=== PATIENT | male | born 1990 | race American Indian/Alaskan Native ===

== ENCOUNTER 2017-08-12 16:15 | Emergency (ER) | payer OTHER ==
[2017-08-12] MEDS ORDERED: CATAPRES PO ONE (17:30)
--- NOTE | 2017-08-12 18:49 | XRay Report ---
FINAL REPORT EXAM: XR FOOT 3+V LT HISTORY: injury to great toe TECHNIQUE: Four views left foot Comparison: None FINDINGS: Normal bony mineralization. No fracture or dislocation identified. Preserved longitudinal arch. No significant degenerative disease. Dorsal soft tissue swelling over the forefoot. The medial tuft is incompletely evaluated of the great toe due to inadequate bony technique. IMPRESSION: Suboptimal technique. Medial tuft great toe incompletely assessed. No definite fracture or dislocation. Dorsal soft tissue swelling.
--- NOTE | 2017-08-12 20:21 | Emergency Department Report ---
ED Lower Extremity HPI - General Chief Complaint: Extremity Injury, Lower Stated Complaint: SWOLLEN FOOT Time Seen by Provider: 08/12/17 20:18 Source: patient Mode of arrival: Ambulatory Limitations: No Limitations - History of Present Illness Initial Comments: This is a 27 y.o male, presenting with left great toe pain. Patient states he think he stumped toe on coffee table or Sunday night. He went to work and it was fine until today the pain is 10/10 on pain scale with swelling. It is very uncomfortable putting foot into shoe. Complaint: foot injury -: Sudden Injury: Foot: Left (stumped left great toe) Type of Injury: blunt Place: home Severity scale (0 -10): 10 Improves With: NSAID, immobilization Worsens With: weight bearing, movement, other (touch) Context: direct blow Associated Symptoms: swelling, able to partially bear weight, ambulatory. denies: numbness, tingling, unable to bear weight Treatments Prior to Arrival: NSAIDS - Related Data Previous Rx's Medication Instructions Recorded Last Taken Type Colchicine [Colcrys] 0.6 mg PO DAILY 30 Days #30 tablet 08/12/17 Unknown Rx Ibuprofen 800 mg PO Q6HR 7 Days #28 tablet 08/12/17 Unknown Rx Prednisone [predniSONE 10 mg 10 mg PO .TAPER #1 tab.ds.pk 08/12/17 Unknown Rx (6-Day Pack, 21 Tabs)] Allergies Allergy/AdvReac Type Severity Reaction Status Date / Time No Known Allergies Allergy Verified 08/12/17 20:19 ED Review of Systems ROS: Stated complaint: SWOLLEN FOOT Other details as noted in HPI Constitutional: no symptoms reported, see HPI. denies: chills, diaphoresis, fever, malaise, weakness Respiratory: no symptoms reported, see HPI. denies: cough, orthopnea, shortness of breath, SOB with exertion, SOB at rest, stridor, wheezing Cardiovascular: as per HPI. denies: chest pain, palpitations, dyspnea on exertion, orthopnea, edema, syncope, paroxysmal nocturnal dyspnea Musculoskeletal: as per HPI, joint swelling. denies: back pain, arthralgia, myalgia Skin: as per HPI. denies: rash, lesions, change in hair/nails, pruritus Neurological: as per HPI. denies: headache, weakness, numbness, paresthesias, confusion, abnormal gait, vertigo Psychiatric: as per HPI. denies: anxiety, depression, auditory hallucinations, visual hallucinations, homicidal thoughts, suicidal thoughts ED Past Medical Hx - Past Medical History Hx Hypertension: Yes Hx HIV: Yes - Surgical History Past Surgical History?: No - Social History Smoking Status: Never Smoker Substance Use Type: None - Medications Home Medications: Home Medications Medication Instructions Recorded Confirmed Last Taken Type Colchicine [Colcrys] 0.6 mg PO DAILY 30 Days #30 tablet 08/12/17 Unknown Rx Ibuprofen 800 mg PO Q6HR 7 Days #28 tablet 08/12/17 Unknown Rx Prednisone [predniSONE 10 mg 10 mg PO .TAPER #1 tab.ds.pk 08/12/17 Unknown Rx (6-Day Pack, 21 Tabs)] ED Physical Exam - General Limitations: No Limitations General appearance: alert, in no apparent distress - Respiratory Respiratory exam: Present: normal lung sounds bilaterally. Absent: respiratory distress, wheezes, rales, rhonchi, stridor, chest wall tenderness, accessory muscle use, decreased breath sounds, prolonged expiratory - Cardiovascular Cardiovascular Exam: Present: regular rate, normal rhythm, normal heart sounds. Absent: bradycardia, tachycardia, irregular rhythm, systolic murmur, diastolic murmur, rubs, gallop, clicks - GI/Abdominal GI/Abdominal exam: Present: soft, normal bowel sounds. Absent: distended, tenderness, guarding, rebound, rigid, diminished bowel sounds, hyperactive bowel sounds, hypoactive bowel sounds, organomegaly, mass, bruit, pulsatile mass , hernia - Extremities Exam Extremities exam: Present: normal inspection, full ROM, tenderness, normal capillary refill, joint swelling (left great toe erythema, mild swelling, painful to touch). Absent: pedal edema, calf tenderness - Neurological Exam Neurological exam: Present: alert, oriented X3, CN II-XII intact, normal gait. Absent: altered, abnormal gait, motor sensory deficit, reflexes normal - Psychiatric Psychiatric exam: Present: normal affect, normal mood. Absent: depressed, agitated, anxious, flat affect, manic, homicidal ideation, suicidal ideation - Skin Skin exam: Present: warm, dry, intact, normal color. Absent: rash, cyanosis, diaphoretic, urticaria, vesicles, petechiae, pallor, abrasion, ecchymosis ED Course Vital Signs 08/12/17 08/12/17 08/12/17 17:26 17:45 23:28 Temperature 98.9 F Pulse Rate 102 H 102 H 100 H Respiratory 18 22 Rate Blood Pressure 178/120 178/120 Blood Pressure 192/138 [Left] O2 Sat by Pulse 100 100 Oximetry ED Lower Extremity MDM - Lab Data Result diagrams: 08/12/17 21:50 08/12/17 21:50 - Radiology Data Radiology results: image reviewed interpreted by me: radiology FINDINGS: Normal bony mineralization. No fracture or dislocation identified. Preserved longitudinal arch. No significant degenerative disease. Dorsal soft tissue swelling over the forefoot. The medial tuft is incompletely evaluated of the great toe due to inadequate bony technique. IMPRESSION: Suboptimal technique. Medial tuft great toe incompletely assessed. No definite fracture or dislocation. Dorsal soft tissue swelling. - Medical Decision Making 27 y.o. male with left great toe pain, possibly stumped on coffee table 2-3 days ago. Xray, negative fracture, Uric acid 8.9. Started on prednisone, colchicine, and ibuprofen. F/U with PCP. Referred to [facility]. Pt BP remained elevated, refused IV for hydralizine, signed AMA. Critical care attestation.: If time is entered above; I have spent that time in minutes in the direct care of this critically ill patient, excluding procedure time. ED Disposition Clinical Impression: Gout attack Qualifiers: Gout site: toe Gout etiology: idiopathic Laterality: left Qualified Code(s): M10.072 - Idiopathic gout, left ankle and foot Disposition: - TO HOME OR SELFCARE Is pt being admited?: No Does the pt Need Aspirin: No Condition: Stable Instructions: Low Purine Diet (ED), Acute Gouty Arthritis (ED), Self-Care Measures with a Chronic Disease (ED) Additional Instructions: Follow-up with PCP. Prescriptions: Colchicine [Colcrys] 0.6 mg PO DAILY 30 Days #30 tablet Ibuprofen 800 mg PO Q6HR 7 Days #28 tablet Prednisone [predniSONE 10 mg (6-Day Pack, 21 Tabs)] 10 mg PO .TAPER #1 tab.ds.pk Referrals: PRIMARY CARE, [Primary Care Provider] - 3-5 Days Forms: AMA Form, Work/School Release Form Time of Disposition: 23:14 Print Language: POLISH
[2017-08-12 22:17] LABS: Basophils % (Auto) 0.6 % (0.0-1.8); Eosinophils % (Auto) 0.6 % (0.0-4.3); Hemoglobin 13.5 gm/dl (11.8-15.2); Mean Corpuscular HGB Conc 32 % (32-34); Mean Corpuscular Volume 80 fl (84-94); Platelet Count 247 K/mm3 (140-440); Red Blood Count 5.28 M/mm3 (3.65-5.03); Red Cell Distribution Width 14.1 % (13.2-15.2)
[2017-08-12 22:27] LABS: Mean Corpuscular Hemoglobin 26 pg (28-32)
[2017-08-12 22:57] LABS: Alanine Aminotransferase 20 units/L (7-56); Albumin 4.2 g/dL (3.9-5); Alkaline Phosphatase 65 units/L (35-129); Anion Gap 17 mmol/L; BUN/Creatinine Ratio 12; Blood Urea Nitrogen 13 mg/dL (9-20); Calcium 9.1 mg/dL (8.4-10.2); Carbon Dioxide 29 mmol/L (22-30); Chloride 97.4 mmol/L (98-107); Glucose 94 mg/dL (75-100); Potassium 4.3 mmol/L (3.6-5.0); Sodium 139 mmol/L (137-145); Total Protein 8.3 g/dL (6.3-8.2); Uric Acid 8.9 mg/dL (3.5-7.6)
[2017-08-12 23:29] VITALS: BP 192/138
== END 2017-08-12 23:28 | disposition home or self-care (01) ==
LOC: ED 16:15
DX: M10.072 Idiopathic gout, left ankle and foot (principal); Z21 Asymptomatic human immunodeficiency virus [HIV] infection status; I10 Essential (primary) hypertension
CPT/HCPCS: 36415; 80053; 84550; 85025; 99284

== ENCOUNTER 2018-10-31 17:22 | Inpatient (IN) | payer SELFPAY ==
[2018-10-31] MEDS ORDERED: NACL 0.9% 1000 ML 1,000 ML IV ONE (17:50)
[2018-10-31] MEDS ORDERED: ZOFRAN IV ONE (17:51)
--- NOTE | 2018-10-31 17:51 | Emergency Department Report ---
ED N/V/D HPI - General Chief complaint: Abdominal Pain Stated complaint: NAUSEA/VOMIT Time Seen by Provider: 10/31/18 17:48 Source: patient Mode of arrival: Wheelchair Limitations: No Limitations - History of Present Illness Initial comments: Patient is a 28-year-old male that presents emergency room with complaints of nausea and vomiting that started the night prior. Patient states his symptoms are worsening. Patient states he has not held anything down for the last 24 hours. Patient denies fever and chills. Patient denies nausea vomiting patient denies blood in his vomitus. Patient denies diarrhea. Patient denies abdominal pain. Patient denies chest pain/shortness of breath. MD complaint: nausea, vomiting -: Sudden Description of Vomiting: watery Associated Abdominal Pain: No Severity: severe Consistency: constant Improves with: rest Worsens with: eating Associated Symptoms: nausea/vomiting. denies: myalgias, chest pain, cough, diaphoresis, fever/chills, headaches, loss of appetite, malaise, rash, dysuria, shortness of breath, syncope, weakness - Related Data Previous Rx's Medication Instructions Recorded Last Taken Type Ondansetron [Zofran Odt] 4 mg PO Q6HR PRN #15 tab.rapdis 10/31/18 Unknown Rx Allergies Allergy/AdvReac Type Severity Reaction Status Date / Time No Known Allergies Allergy Verified 10/31/18 17:29 ED Review of Systems ROS: Stated complaint: NAUSEA/VOMIT Other details as noted in HPI Constitutional: denies: chills, fever Eyes: denies: eye pain, eye discharge, vision change ENT: denies: ear pain, throat pain Respiratory: denies: cough, shortness of breath, wheezing Cardiovascular: denies: chest pain, palpitations Endocrine: no symptoms reported Gastrointestinal: nausea, vomiting. denies: abdominal pain, diarrhea Genitourinary: denies: urgency, dysuria Musculoskeletal: denies: back pain, joint swelling, arthralgia Skin: denies: rash, lesions Neurological: denies: headache, weakness, paresthesias Psychiatric: denies: anxiety, depression Hematological/Lymphatic: denies: easy bleeding, easy bruising ED Past Medical Hx - Past Medical History Previous Medical History?: Yes Hx Hypertension: Yes Hx HIV: Yes - Surgical History Past Surgical History?: Yes - Family History Family history: no significant - Social History Smoking Status: Never Smoker Substance Use Type: None - Medications Home Medications: Home Medications Medication Instructions Recorded Confirmed Last Taken Type Ondansetron [Zofran Odt] 4 mg PO Q6HR PRN #15 tab.rapdis 10/31/18 Unknown Rx ED Physical Exam - General Limitations: No Limitations General appearance: alert, in no apparent distress - Head Head exam: Present: atraumatic, normocephalic - Eye Eye exam: Present: normal appearance - ENT ENT exam: Present: mucous membranes dry - Neck Neck exam: Present: normal inspection - Respiratory Respiratory exam: Present: normal lung sounds bilaterally. Absent: respiratory distress - Cardiovascular Cardiovascular Exam: Present: regular rate, normal rhythm. Absent: systolic murmur, diastolic murmur, rubs, gallop - GI/Abdominal GI/Abdominal exam: Present: soft, normal bowel sounds. Absent: distended, tenderness, guarding, rebound, rigid - Rectal Rectal exam: Present: deferred - Extremities Exam Extremities exam: Present: normal inspection - Back Exam Back exam: Present: normal inspection - Neurological Exam Neurological exam: Present: alert, oriented X3 - Psychiatric Psychiatric exam: Present: normal affect, normal mood - Skin Skin exam: Present: warm, dry, intact, normal color. Absent: rash ED Course Vital Signs 10/31/18 10/31/18 10/31/18 17:29 18:00 18:10 Temperature 98.5 F Pulse Rate 93 H 82 Respiratory 18 20 10 L Rate Blood Pressure 212/143 Blood Pressure [Left] O2 Sat by Pulse 96 97 Oximetry 10/31/18 10/31/18 10/31/18 18:15 19:15 19:30 Temperature Pulse Rate 83 82 91 H Respiratory 11 L 12 21 Rate Blood Pressure 148/92 145/90 154/111 Blood Pressure [Left] O2 Sat by Pulse Oximetry 10/31/18 10/31/18 10/31/18 19:45 20:00 22:49 Temperature 97.9 F Pulse Rate 81 86 86 Respiratory 18 10 L 18 Rate Blood Pressure 173/107 186/115 172/106 Blood Pressure 153/108 [Left] O2 Sat by Pulse 98 Oximetry 10/31/18 10/31/18 10/31/18 22:50 23:01 23:21 Temperature Pulse Rate Respiratory Rate Blood Pressure 176/106 180/96 152/92 Blood Pressure [Left] O2 Sat by Pulse Oximetry - Reevaluation(s) Reevaluation #1: Coastal results of patient. Patient blood pressures better. Patient states he is symptoms have resolved. Patient states feeling better. The patient has finished his fluids he will be discharged home. Patient is stable for discharge. Patient given discharge instructions. 10/31/18 19:11 Patient fluids are in. Patient states he is feeling better. Patient will be discharged home 10/31/18 20:06 Patient states he is now feeling dizzy and is feeling bad and wants to stay in the hospital. Patient states unable to ambulate. Patient states he is not feel safe going home. 10/31/18 20:30 - Consultations Consultation #1: Hospital is consulted for admission. Hospitalist to admit patient and assume care of patient. 10/31/18 21:35 ED Medical Decision Making - Lab Data Result diagrams: 10/31/18 17:54 10/31/18 17:54 - Medical Decision Making Patient is a 28-year-old male that is emergency room with nausea vomiting. Patient denied abdominal pain. Patient's exam was negative. Patient's clinical findings impression are consistent with a gastrointestinal virus gastroenteritis. After patient was given discharged structures and is being prepared for discharge,, patient state he is unable to ambulate and became dizzy immediately upon getting out of bed. Patient was admitted to the hospitalist service for further evaluation treatment. - Differential Diagnosis n/v. gastroenteritis. Gastritis. Critical care attestation.: If time is entered above; I have spent that time in minutes in the direct care of this critically ill patient, excluding procedure time. ED Disposition Clinical Impression: Gastroenteritis, Dizziness Nausea & vomiting Qualifiers: Vomiting type: unspecified Vomiting Intractability: non-intractable Qualified Code(s): R11.2 - Nausea with vomiting, unspecified Disposition: DC-09 OP ADMIT IP TO THIS HOSP Is pt being admited?: Yes Does the pt Need Aspirin: No Condition: Serious Time of Disposition: 21:35
[2018-10-31 18:24] LABS: Basophils % (Auto) 0.3 % (0.0-1.8); Eosinophils % (Auto) 0.2 % (0.0-4.3); Hematocrit 44.5 % (35.5-45.6); Hemoglobin 14.6 gm/dl (11.8-15.2); Lymphocytes # (Auto) 1.6 K/mm3 (1.2-5.4); Lymphocytes % (Auto) 21.4 % (13.4-35.0); Mean Corpuscular HGB Conc 33 % (32-34); Mean Corpuscular Volume 80 fl (84-94); Monocytes # (Auto) 0.4 K/mm3 (0.0-0.8); Platelet Count 259 K/mm3 (140-440); Red Blood Count 5.55 M/mm3 (3.65-5.03)
[2018-10-31 18:39] LABS: Alanine Aminotransferase 17 units/L (7-56); Albumin 4.3 g/dL (3.9-5); BUN/Creatinine Ratio 10; Blood Urea Nitrogen 11 mg/dL (9-20); Calcium 9.4 mg/dL (8.4-10.2); Hemolysis Index 7
[2018-10-31] MEDS ORDERED: TYLENOL PO PRN (22:05)
[2018-10-31] MEDS ORDERED: MORPHINE IV PRN (22:05)
[2018-10-31] MEDS ORDERED: SODIUM CHLORIDE FLUSH SYRINGE 10 ML IV PRN (22:05)
--- NOTE | 2018-10-31 22:26 | History and Physical Report ---
History of Present Illness Date of examination: 10/31/18 History of present illness: 28 year old man with a history of HIV, unknown CD4 count, hypertension comes emergency room with complaints of nausea vomiting and diarrhea that started last night after eating [employer]. The areas improve, and he feels dizzy and f eels if he is going to pass out, decreased oral intake Review of systems Constitutional: no weight loss, chills, fever Ears, eyes, nose, mouth and throat: no nasal congestion, no nasal discharge, no sinus pressure, no vision change, no red eye. Neck: No neck pain or rigidity. Cardiovascular: no palpitations, chest pain Respiratory: no cough, shortness of breath Gastrointestinal: no hematochezia, abdominal pain Genitourinary : no frequency , no hematuria Musculoskeletal: no joint swelling or muscle ache Integumentary: no rash, no pruritis Neurological: no parathesias, no focal weakness Endocrine: no cold or heat intolerance, no polyuria or polydipsia Hematologic/Lymphatic: no easy bruising, no easy bleeding, no gland swelling Allergic/Immunologic: no urticaria, no angioedema. PAST MEDICAL HISTORY: HIV, unknown CD4 count, hypertension PAST SURGICAL HISTORY: None SOCIAL HISTORY: Denies alcohol, drugs, tobacco FAMILY HISTORY: Hypertension Medications and Allergies Allergies Allergy/AdvReac Type Severity Reaction Status Date / Time No Known Allergies Allergy Verified 10/31/18 17:29 Home Medications Medication Instructions Recorded Confirmed Last Taken Type Colchicine [Colcrys] 0.6 mg PO DAILY 30 Days #30 tablet 08/12/17 Unknown Rx Ibuprofen 800 mg PO Q6HR 7 Days #28 tablet 08/12/17 Unknown Rx Prednisone [predniSONE 10 mg 10 mg PO .TAPER #1 tab.ds.pk 08/12/17 Unknown Rx (6-Day Pack, 21 Tabs)] Ondansetron [Zofran Odt] 4 mg PO Q6HR PRN #15 tab.rapdis 10/31/18 Unknown Rx Active Meds: Active Medications Acetaminophen (Tylenol) 650 mg PO Q4H PRN PRN Reason: Pain MILD(1-3)/Fever >100.5/MARCIAL Enoxaparin Sodium (Lovenox) 30 mg SUB-Q QDAY RYANN Sodium Chloride (Nacl 0.45% 1000 Ml) 1,000 mls @ 125 mls/hr IV DIRECT RYANN Exam - Physical Exam Narrative exam: General Apperance: The patient lying in bed, breathing comfortable HEENT: Normocephalic, atraumatic. Pupils equally round and reactive to light, EOMI, no sclericterus or JVD or thyromegaly or nodule. , no carotid bruit, mucous membranes moist, no exudate or erythema Heart: S1-S2, regular is rhythm Lungs: Clear to auscultation bilaterally, breathing comfortable Abdomen: Positive bowel sounds, soft, nontender, nondistended, no organomegaly Extremities: No edema cyanosis clubbing Skin: no rash, nodule, warm and dry Neuro: cranial nerves 2-12 intact, speech is fluent, motor/sensory intact - Constitutional Vitals: Temp Pulse Resp BP Pulse Ox 98.5 F 91 H 21 154/111 97 10/31/18 17:29 10/31/18 19:30 10/31/18 19:30 10/31/18 19:30 10/31/18 18:00 Results - Labs CBC & Chem 7: 10/31/18 17:54 10/31/18 17:54 Labs: Abnormal lab results 10/31/18 10/31/18 Range/Units 17:54 17:54 RBC 5.55 H (3.65-5.03) M/mm3 MCV 80 L (84-94) fl MCH 26 L (28-32) pg Seg Neutrophils % 72.1 H (40.0-70.0) % Glucose 130 H (75-100) mg/dL Total Protein 8.5 H (6.3-8.2) g/dL Assessment and Plan Assessment Gastroenteritis, viral Dizziness second to the above Hypertension HIV Plan Admit to medicine Start IV fluids, antiemetics, send stool studies IV hydralazine for blood pressure control DVT prophylaxis
[2018-10-31] MEDS: APRESOLINE IV PRN (22:50)
[2018-11-01] MEDS: REGLAN IV PRN ×2 (00:50→16:38)
[2018-11-01] MEDS: APRESOLINE IV PRN ×3 (06:02→22:56)
[2018-11-01 06:12] LABS: Basophils % (Auto) 0.3 % (0.0-1.8); Eosinophils % (Auto) 0.3 % (0.0-4.3); Hematocrit 42.8 % (35.5-45.6); Hemoglobin 14.1 gm/dl (11.8-15.2); Lymphocytes # (Auto) 2.7 K/mm3 (1.2-5.4); Lymphocytes % (Auto) 28.7 % (13.4-35.0); Mean Corpuscular HGB Conc 33 % (32-34); Mean Corpuscular Volume 80 fl (84-94); Monocytes # (Auto) 0.8 K/mm3 (0.0-0.8); Monocytes % (Auto) 8.1 % (0.0-7.3); Platelet Count 285 K/mm3 (140-440); Red Blood Count 5.36 M/mm3 (3.65-5.03); Red Cell Distribution Width 14.4 % (13.2-15.2)
[2018-11-01 06:36] LABS: BUN/Creatinine Ratio 9; Blood Urea Nitrogen 10 mg/dL (9-20); Calcium 9.2 mg/dL (8.4-10.2); Hemolysis Index 8
[2018-11-01] MEDS ORDERED: LOVENOX SUB-Q SCH (10:00)
[2018-11-01] MEDS ORDERED: COLCHICINE 0.6 MG PO SCH (10:00)
[2018-11-01] MEDS: ZOFRAN IV PRN ×2 (11:02→20:49)
[2018-11-01] MEDS: NACL 0.45% 1000 ML 1,000 ML IV SCH ×2 (11:02→18:55)
[2018-11-01] MEDS: SODIUM CHLORIDE FLUSH SYRINGE 10 ML IV SCH (11:03)
[2018-11-01] MEDS: LOVENOX SUB-Q SCH (11:06)
[2018-11-01] MEDS: LOPRESSOR PO SCH ×2 (11:40→22:07)
[2018-11-01] MEDS: COLCHICINE PO SCH (12:03)
--- NOTE | 2018-11-01 12:05 | Progress Note ---
Assessment and Plan Assessment and plan: Assessment and plan Sinus Tachy 2/2 dehydration continue IVF hydration add Lopressor monitor HR closely Uncontrolled HTN Lopressor Acute Gastroenteritis vs Food Poisoning symptoms started after eating fast food Add empiric Flagyl especially in this pt with immunosuppression from HIV Continue IVF hydration Nausea and vomiting aspiration precautions antiemetics Morbid Obesity counseled weigt loss Loose weight exercise diet modification Generalized weakness 2/2 above IVF hydration Dehydration 2/2 GI loses continue IVF hydration Further pt mgt per hospital course 33 mins spent Dispo: per hospital course Disposition Plan: per hospital course, advance diet as tolerated. Total Time Spent with Patient (Minutes): 33 mins History Interval history: HPI on 10/31/18 28 year old man with a history of HIV, unknown CD4 count, hypertension comes emergency room with complaints of nausea vomiting and diarrhea that started last night after eating [employer]. The areas improve, and he feels dizzy and feels if he is going to pass out, decreased oral intake. Brief hospital course: Pt was admitted to the hospital medicine service 10/31/18 and is being managed with IVF hdyration and electrolyte repletion. Subjective: Pt seen and exam, reports Nausea but no vomiting. HR and BP elevated. Pt was on Lopressor at home per pt. Denied abdominal pain, was sleeping intermittently during the encounter. Hospitalist Physical - Constitutional Vitals: Temp Pulse Resp BP Pulse Ox 98.2 F 109 H 20 161/95 97 11/01/18 11:19 11/01/18 06:02 11/01/18 11:19 11/01/18 11:40 11/01/18 05:44 General appearance: Present: no acute distress, well-nourished, obese - EENT Eyes: Present: PERRL, EOM intact ENT: hearing intact, clear oral mucosa - Neck Neck: Present: supple, normal ROM - Respiratory Respiratory: bilateral: CTA, negative: diminished, rales, rhonchi, wheezing - Cardiovascular Rhythm: regular (tachy) Heart Sounds: Present: S1 & S2 - Extremities Extremities: pulses intact, pulses symmetrical, normal temperature, normal color - Abdominal General gastrointestinal: soft, non-tender, non-distended, normal bowel sounds, other (obese and protuberant) - Integumentary Integumentary: Present: clear, warm, dry - Psychiatric Psychiatric: appropriate mood/affect, intact judgment & insight, cooperative - Neurologic Neurologic: CNII-XII intact, moves all extremities - Allied Health Allied health notes reviewed: nursing Results - Labs CBC & Chem 7: 11/01/18 05:38 11/01/18 05:38 Labs: Laboratory Last Values WBC 9.5 K/mm3 (4.5-11.0) 11/01/18 05:38 RBC 5.36 M/mm3 (3.65-5.03) H 11/01/18 05:38 Hgb 14.1 gm/dl (11.8-15.2) 11/01/18 05:38 Hct 42.8 % (35.5-45.6) 11/01/18 05:38 MCV 80 fl (84-94) L 11/01/18 05:38 MCH 26 pg (28-32) L 11/01/18 05:38 MCHC 33 % (32-34) 11/01/18 05:38 RDW 14.4 % (13.2-15.2) 11/01/18 05:38 Plt Count 285 K/mm3 (140-440) 11/01/18 05:38 Lymph % (Auto) 28.7 % (13.4-35.0) 11/01/18 05:38 [place] % (Auto) 8.1 % (0.0-7.3) H 11/01/18 05:38 Eos % (Auto) 0.3 % (0.0-4.3) 11/01/18 05:38 Baso % (Auto) 0.3 % (0.0-1.8) 11/01/18 05:38 Lymph # 2.7 K/mm3 (1.2-5.4) 11/01/18 05:38 [place] # 0.8 K/mm3 (0.0-0.8) 11/01/18 05:38 Eos # 0.0 K/mm3 (0.0-0.4) 11/01/18 05:38 Baso # 0.0 K/mm3 (0.0-0.1) 11/01/18 05:38 Seg Neutrophils % 62.6 % (40.0-70.0) 11/01/18 05:38 Seg Neutrophils # 6.0 K/mm3 (1.8-7.7) 11/01/18 05:38 Sodium 139 mmol/L (137-145) 11/01/18 05:38 Potassium 3.5 mmol/L (3.6-5.0) L 11/01/18 05:38 Chloride 100.4 mmol/L (98-107) 11/01/18 05:38 Carbon Dioxide 24 mmol/L (22-30) 11/01/18 05:38 Anion Gap 18 mmol/L 11/01/18 05:38 BUN 10 mg/dL (9-20) 11/01/18 05:38 Creatinine 1.1 mg/dL (0.8-1.5) 11/01/18 05:38 Estimated GFR > 60 ml/min 11/01/18 05:38 BUN/Creatinine Ratio 9 % 11/01/18 05:38 Glucose 104 mg/dL (75-100) H 11/01/18 05:38 Calcium 9.2 mg/dL (8.4-10.2) 11/01/18 05:38 Total Bilirubin 0.40 mg/dL (0.1-1.2) 10/31/18 17:54 AST 19 units/L (5-40) 10/31/18 17:54 ALT 17 units/L (7-56) 10/31/18 17:54 Alkaline Phosphatase 68 units/L (35-129) 10/31/18 17:54 Total Protein 8.5 g/dL (6.3-8.2) H 10/31/18 17:54 Albumin 4.3 g/dL (3.9-5) 10/31/18 17:54 Albumin/Globulin Ratio 1.0 % 10/31/18 17:54
[2018-11-01] MEDS: FLAGYL 500 MG/100 ML 500 MG/100 ML BAG IV SCH (22:06)
[2018-11-02] MEDS: FLAGYL 500 MG/100 ML 500 MG/100 ML BAG IV SCH (06:21)
[2018-11-02] MEDS: REGLAN IV PRN (06:36)
[2018-11-02] MEDS: APRESOLINE IV PRN (06:36)
[2018-11-02] MEDS: LOVENOX SUB-Q SCH (09:32)
[2018-11-02] MEDS: LOPRESSOR PO SCH ×2 (09:32→21:57)
[2018-11-02] MEDS: COLCHICINE PO SCH (09:32)
[2018-11-02] MEDS ORDERED: APRESOLINE IV PRN (10:19)
[2018-11-02 13:09] LABS: BUN/Creatinine Ratio 11; Blood Urea Nitrogen 11 mg/dL (9-20); Hemolysis Index 16
[2018-11-02] MEDS ORDERED: K-DUR PO NR (13:56)
--- NOTE | 2018-11-02 13:57 | Progress Note ---
Assessment and Plan Assessment and plan: Acute Gastroenteritis vs Food Poisoning -Continue IVF hydration Sinus Tachy 2/2 dehydration from GI losses -continue IVF hydration Uncontrolled HTN -cont Lopressor, amlodipine and hydralazine added Intractable nausea and vomiting -cont antiemetics -on full liquid diet, advance diet as tolerated -CT abdomen/pelvis for further eval Generalized weakness 2/2 above -cont IVF hydration Hypokalemia -improving on repletion, will monitor Morbid Obesity with BMI of 49.3 -lifestyle modification recommended Disp: for d/c when vomiting resolves History Interval history: Pt continues to vomit today Hospitalist Physical - Constitutional Vitals: Temp Pulse Resp BP Pulse Ox 98.2 F 77 16 137/81 96 11/02/18 11:46 11/02/18 11:46 11/02/18 11:46 11/02/18 11:46 11/02/18 11:46 General appearance: Present: no acute distress, obese - EENT Eyes: Present: PERRL, EOM intact ENT: hearing intact, clear oral mucosa - Neck Neck: Present: supple - Respiratory Respiratory effort: normal Respiratory: bilateral: CTA - Cardiovascular Rhythm: regular Heart Sounds: Present: S1 & S2 - Extremities Extremities: No edema - Abdominal General gastrointestinal: soft, non-tender, non-distended, normal bowel sounds - Neurologic Neurologic: CNII-XII intact Results - Labs CBC & Chem 7: 11/01/18 05:38 11/02/18 12:27 Labs: Laboratory Last Values WBC 9.5 K/mm3 (4.5-11.0) 11/01/18 05:38 RBC 5.36 M/mm3 (3.65-5.03) H 11/01/18 05:38 Hgb 14.1 gm/dl (11.8-15.2) 11/01/18 05:38 Hct 42.8 % (35.5-45.6) 11/01/18 05:38 MCV 80 fl (84-94) L 11/01/18 05:38 MCH 26 pg (28-32) L 11/01/18 05:38 MCHC 33 % (32-34) 11/01/18 05:38 RDW 14.4 % (13.2-15.2) 11/01/18 05:38 Plt Count 285 K/mm3 (140-440) 11/01/18 05:38 Lymph % (Auto) 28.7 % (13.4-35.0) 11/01/18 05:38 [place] % (Auto) 8.1 % (0.0-7.3) H 11/01/18 05:38 Eos % (Auto) 0.3 % (0.0-4.3) 11/01/18 05:38 Baso % (Auto) 0.3 % (0.0-1.8) 11/01/18 05:38 Lymph # 2.7 K/mm3 (1.2-5.4) 11/01/18 05:38 [place] # 0.8 K/mm3 (0.0-0.8) 11/01/18 05:38 Eos # 0.0 K/mm3 (0.0-0.4) 11/01/18 05:38 Baso # 0.0 K/mm3 (0.0-0.1) 11/01/18 05:38 Seg Neutrophils % 62.6 % (40.0-70.0) 11/01/18 05:38 Seg Neutrophils # 6.0 K/mm3 (1.8-7.7) 11/01/18 05:38 Sodium 136 mmol/L (137-145) L 11/02/18 12:27 Potassium 3.6 mmol/L (3.6-5.0) 11/02/18 12:27 Chloride 98.5 mmol/L (98-107) 11/02/18 12:27 Carbon Dioxide 25 mmol/L (22-30) 11/02/18 12:27 Anion Gap 16 mmol/L 11/02/18 12:27 BUN 11 mg/dL (9-20) 11/02/18 12:27 Creatinine 1.0 mg/dL (0.8-1.5) 11/02/18 12:27 Estimated GFR > 60 ml/min 11/02/18 12:27 BUN/Creatinine Ratio 11 % 11/02/18 12:27 Glucose 100 mg/dL (75-100) 11/02/18 12:27 Calcium 9.0 mg/dL (8.4-10.2) 11/02/18 12:27 Magnesium 2.00 mg/dL (1.7-2.3) 11/02/18 12:27 Total Bilirubin 0.40 mg/dL (0.1-1.2) 10/31/18 17:54 AST 19 units/L (5-40) 10/31/18 17:54 ALT 17 units/L (7-56) 10/31/18 17:54 Alkaline Phosphatase 68 units/L (35-129) 10/31/18 17:54 Total Protein 8.5 g/dL (6.3-8.2) H 10/31/18 17:54 Albumin 4.3 g/dL (3.9-5) 10/31/18 17:54 Albumin/Globulin Ratio 1.0 % 10/31/18 17:54
[2018-11-02] MEDS: ZOFRAN IV PRN (14:26)
[2018-11-02] MEDS: D5W/NS W/KCL 20MEQ 20 MEQ/1,000 ML BAG IV SCH (15:44)
[2018-11-02] MEDS: PROTONIX IV SCH (15:46)
[2018-11-02] MEDS: APRESOLINE PO SCH ×3 (15:46→21:55)
[2018-11-02] MEDS: NORVASC PO SCH (15:46)
[2018-11-02] MEDS: PHENERGAN PR PRN (15:47)
[2018-11-02] MEDS: SODIUM CHLORIDE FLUSH SYRINGE 10 ML IV SCH ×3 (15:53→21:59)
--- NOTE | 2018-11-02 22:29 | Cat Scan Report ---
CT ABDOMEN PELVIS WO CON CLINICAL INDICATION: Male, 28 years of age. intractable n/v COMPARISON: None available. TECHNIQUE: Contiguous axial images were obtained. This CT exam was performed using one or more of th e following dose reduction techniques: automated exposure control, adjustment of the mA and/or kV acc ording to patient size, or use of iterative reconstruction technique. Additional sagittal and coronal reformatted images were obtained. FINDINGS: Lung bases are clear. No calcified gallstones. Mild diffuse fatty infiltration of the liver . Spleen, pancreas, adrenal glands are grossly unremarkable. No nephrolithiasis or hydronephrosis. Ao rta and IVC are normal in caliber. No distal ureteral urinary bladder calculi. Urinary bladder is decompressed. Prostate gland is unrema rkable. No free fluid or lymphadenopathy in the pelvic cavity. The appendix is normal in caliber tammy uring 5 mm in diameter. Large and small bowel loops are normal in caliber. No focal inflammatory bach ge in the bowel. Several nonenlarged inguinal lymph nodes, likely reactive. None are pathologically enlarged. Lumbar vertebral body heights preserved. Bony pelvis is grossly intact. IMPRESSION: 1. No gross focal inflammatory changes of the abdomen and pelvis. 2. Large and small bowel loops are normal in caliber. The appendix is normal in caliber. 3. No obstructive uropathy or urolithiasis. IMPRESSION: 1. This document is electronically signed by Kaylah Coello DO., November 02 2018 05:18:00 PM ET
[2018-11-03] MEDS: ZOFRAN IV PRN ×2 (00:39→05:21)
[2018-11-03] MEDS: D5W/NS W/KCL 20MEQ 20 MEQ/1,000 ML BAG IV SCH (04:54)
[2018-11-03] MEDS: APRESOLINE PO SCH ×3 (05:21→21:51)
[2018-11-03 07:43] LABS: BUN/Creatinine Ratio 10; Blood Urea Nitrogen 11 mg/dL (9-20); Hemolysis Index 4
[2018-11-03] MEDS: PHENERGAN PR PRN (08:49)
[2018-11-03] MEDS: COLCHICINE PO SCH (09:45)
[2018-11-03] MEDS: LOPRESSOR PO SCH ×2 (09:45→21:49)
[2018-11-03] MEDS: LOVENOX SUB-Q SCH (09:45)
[2018-11-03] MEDS: PROTONIX IV SCH (09:45)
[2018-11-03] MEDS: NORVASC PO SCH (09:45)
[2018-11-03] MEDS: SODIUM CHLORIDE FLUSH SYRINGE 10 ML IV SCH ×2 (09:46→21:52)
[2018-11-03] MEDS: KCL 10MEQ/100ML 10 MEQ/100 ML BAG IV SCH (11:26)
--- NOTE | 2018-11-03 13:37 | Progress Note ---
Assessment and Plan Assessment and plan: Acute Gastroenteritis vs Food Poisoning -Continue IVF hydration Sinus Tachy 2/2 dehydration from GI losses -improved HTN -BP fairly controlled -cont Lopressor and amlodipine, hydralazine dose increased Intractable nausea and vomiting -cont antiemetics, will add sucralfate -on full liquid diet, advance diet as tolerated -CT abdomen/pelvis neg -GI consulted, appreciate consult Generalized weakness 2/2 above -cont IVF hydration Hypokalemia -on repletion, will monitor Morbid Obesity with BMI of 49.3 -lifestyle modification recommended Disp: for d/c when vomiting resolves History Interval history: Pt reported vomiting today Hospitalist Physical - Constitutional Vitals: Temp Pulse Resp BP Pulse Ox 97.9 F 89 20 147/95 96 11/03/18 00:26 11/03/18 09:45 11/03/18 00:26 11/03/18 09:45 11/03/18 00:26 General appearance: Present: no acute distress, obese - EENT Eyes: Present: PERRL, EOM intact ENT: hearing intact, clear oral mucosa - Neck Neck: Present: supple - Respiratory Respiratory effort: normal Respiratory: bilateral: CTA - Cardiovascular Rhythm: regular Heart Sounds: Present: S1 & S2 - Extremities Extremities: No edema - Abdominal General gastrointestinal: soft, non-tender, normal bowel sounds - Neurologic Neurologic: CNII-XII intact Results - Labs CBC & Chem 7: 11/01/18 05:38 11/03/18 06:45 Labs: Laboratory Last Values WBC 9.5 K/mm3 (4.5-11.0) 11/01/18 05:38 RBC 5.36 M/mm3 (3.65-5.03) H 11/01/18 05:38 Hgb 14.1 gm/dl (11.8-15.2) 11/01/18 05:38 Hct 42.8 % (35.5-45.6) 11/01/18 05:38 MCV 80 fl (84-94) L 11/01/18 05:38 MCH 26 pg (28-32) L 11/01/18 05:38 MCHC 33 % (32-34) 11/01/18 05:38 RDW 14.4 % (13.2-15.2) 11/01/18 05:38 Plt Count 285 K/mm3 (140-440) 11/01/18 05:38 Lymph % (Auto) 28.7 % (13.4-35.0) 11/01/18 05:38 [place] % (Auto) 8.1 % (0.0-7.3) H 11/01/18 05:38 Eos % (Auto) 0.3 % (0.0-4.3) 11/01/18 05:38 Baso % (Auto) 0.3 % (0.0-1.8) 11/01/18 05:38 Lymph # 2.7 K/mm3 (1.2-5.4) 11/01/18 05:38 [place] # 0.8 K/mm3 (0.0-0.8) 11/01/18 05:38 Eos # 0.0 K/mm3 (0.0-0.4) 11/01/18 05:38 Baso # 0.0 K/mm3 (0.0-0.1) 11/01/18 05:38 Seg Neutrophils % 62.6 % (40.0-70.0) 11/01/18 05:38 Seg Neutrophils # 6.0 K/mm3 (1.8-7.7) 11/01/18 05:38 Sodium 137 mmol/L (137-145) 11/03/18 06:45 Potassium 3.5 mmol/L (3.6-5.0) L 11/03/18 06:45 Chloride 99.7 mmol/L (98-107) 11/03/18 06:45 Carbon Dioxide 24 mmol/L (22-30) 11/03/18 06:45 Anion Gap 17 mmol/L 11/03/18 06:45 BUN 11 mg/dL (9-20) 11/03/18 06:45 Creatinine 1.1 mg/dL (0.8-1.5) 11/03/18 06:45 Estimated GFR > 60 ml/min 11/03/18 06:45 BUN/Creatinine Ratio 10 % 11/03/18 06:45 Glucose 103 mg/dL (75-100) H 11/03/18 06:45 Calcium 9.0 mg/dL (8.4-10.2) 11/03/18 06:45 Magnesium 2.00 mg/dL (1.7-2.3) 11/02/18 12:27 Total Bilirubin 0.40 mg/dL (0.1-1.2) 10/31/18 17:54 AST 19 units/L (5-40) 10/31/18 17:54 ALT 17 units/L (7-56) 10/31/18 17:54 Alkaline Phosphatase 68 units/L (35-129) 10/31/18 17:54 Total Protein 8.5 g/dL (6.3-8.2) H 10/31/18 17:54 Albumin 4.3 g/dL (3.9-5) 10/31/18 17:54 Albumin/Globulin Ratio 1.0 % 10/31/18 17:54 Lipase 18 units/L (13-60) 11/03/18 06:45
[2018-11-03] MEDS: CARAFATE PO SCH ×2 (17:49→21:49)
[2018-11-04] MEDS: KCL 10MEQ/100ML 10 MEQ/100 ML BAG IV SCH (01:10)
[2018-11-04] MEDS: APRESOLINE PO SCH ×2 (05:10→15:43)
[2018-11-04 07:16] LABS: BUN/Creatinine Ratio 11; Blood Urea Nitrogen 11 mg/dL (9-20); Calcium 8.8 mg/dL (8.4-10.2); Hemolysis Index 5
[2018-11-04] MEDS: SODIUM CHLORIDE FLUSH SYRINGE 10 ML IV SCH (10:17)
[2018-11-04] MEDS: PROTONIX IV SCH (10:17)
[2018-11-04] MEDS: LOPRESSOR PO SCH (10:17)
[2018-11-04] MEDS: NORVASC PO SCH (10:17)
[2018-11-04] MEDS: CARAFATE PO SCH ×4 (10:17→18:31)
[2018-11-04] MEDS: LOVENOX SUB-Q SCH (10:17)
--- NOTE | 2018-11-04 10:54 | Gastroenterology Consultation ---
<ELIJAH ARANGO - Last Filed: 11/04/18 12:19> History of Present Illness - Reason for Consult Consult date: 11/04/18 intractable N/V Requesting physician: RUBIN PURI - History of Present Illness Patient is a 28 y/o male with PMH of HTN, obesity, and HIV who presented to ED with c/o an acute onset of N/V and diarrhea after eating at [facility] and was admitted with acute gastroenteritis vs food poisoning. Abd CT negative. GI has been consulted for intractable N/V. This morning patient was resting in bed w/o acute distress. Reports N/V and diarrhea now resolved with no episodes of vomiting or BMs today. Tolerating diet ([employer] bag noted on bedside table to which he ate overnight w/o difficulty). Denies fever, CP, SOB, abd pain, signs of bleeding, or LGI symptoms. Past History Past Medical History: HIV/AIDS, hypertension, other (obesity) Past Surgical History: No surgical history Social history: denies: smoking, alcohol abuse Family history: hypertension Medications and Allergies Allergies Allergy/AdvReac Type Severity Reaction Status Date / Time No Known Allergies Allergy Verified 10/31/18 17:29 Home Medications Medication Instructions Recorded Confirmed Last Taken Type Ondansetron [Zofran Odt] 4 mg PO Q6HR PRN #15 tab.rapdis 10/31/18 Unknown Rx Active Meds: Active Medications Acetaminophen (Tylenol) 650 mg PO Q4H PRN PRN Reason: Pain MILD(1-3)/Fever >100.5/MARCIAL Last Admin: 11/01/18 06:01 Dose: 650 mg Documented by: Amlodipine Besylate (Norvasc) 10 mg PO QDAY [facility] Last Admin: 11/04/18 10:17 Dose: 10 mg Documented by: Colchicine (Colchicine) 0.6 mg PO DAILY [facility] Last Admin: 11/03/18 09:45 Dose: 0.6 mg Documented by: Enoxaparin Sodium (Lovenox) 40 mg SUB-Q QDAY@1000 [facility] Last Admin: 11/04/18 10:17 Dose: 40 mg Documented by: Hydralazine HCl (Apresoline) 10 mg IV Q4H PRN PRN Reason: Hypertension Hydralazine HCl (Apresoline) 75 mg PO Q8HR [facility] Last Admin: 11/04/18 05:10 Dose: 75 mg Documented by: Potassium Chloride/Dextrose/Sod Cl (D5w/Ns W/Kcl 20meq) 20 meq in 1,000 mls @ 75 mls/hr IV DIRECT [facility] Last Admin: 11/03/18 04:54 Dose: 75 mls/hr Documented by: Metoclopramide HCl (Reglan) 10 mg IV Q6H PRN PRN Reason: Nausea And Vomiting Last Admin: 11/02/18 06:36 Dose: 10 mg Documented by: Metoprolol Tartrate (Lopressor) 25 mg PO BID [facility] Last Admin: 11/04/18 10:17 Dose: 25 mg Documented by: Morphine Sulfate (Morphine) 2 mg IV Q4H PRN PRN Reason: Pain, Moderate (4-6) Last Admin: 11/04/18 05:09 Dose: 2 mg Documented by: Ondansetron HCl (Zofran) 4 mg IV Q4H PRN PRN Reason: Nausea And Vomiting Last Admin: 11/03/18 05:21 Dose: 4 mg Documented by: Pantoprazole Sodium (Protonix) 40 mg IV QDAY [facility] Last Admin: 11/04/18 10:17 Dose: 40 mg Documented by: Promethazine HCl (Phenergan) 25 mg MD Q6H PRN PRN Reason: Nausea And Vomiting Last Admin: 11/03/18 08:49 Dose: 25 mg Documented by: Sodium Chloride (Sodium Chloride Flush Syringe 10 Ml) 10 ml IV BID [facility] Last Admin: 11/04/18 10:17 Dose: 10 ml Documented by: Sodium Chloride (Sodium Chloride Flush Syringe 10 Ml) 10 ml IV PRN PRN PRN Reason: LINE FLUSH Sucralfate (Carafate) 1 gm PO ACHS [facility] Last Admin: 11/04/18 10:25 Dose: Not Given Documented by: medications reviewed/updated as required Review of Systems - Review of Systems All systems: negative Gastrointestinal: nausea, vomiting, no abdominal pain, no diarrhea, no hematemesis, no coffee ground emesis, no melena, no hematochezia Exam - Constitutional Vital Signs: Temp Pulse Resp BP Pulse Ox 98.2 F 100 H 24 157/98 97 11/04/18 05:46 11/04/18 10:17 11/04/18 05:46 11/04/18 10:17 11/04/18 05:46 General appearance: no acute distress, obese - EENT Eyes: PERRL, EOM intact ENT: hearing intact - Respiratory Respiratory: bilateral: CTA - Cardiovascular Rhythm: regular Heart Sounds: Present: S1 & S2 - Gastrointestinal General gastrointestinal: Present: soft, non-tender, non-distended, normal bowel sounds - Neurologic Neurological: alert and oriented x3 - Labs CBC & Chem 7: 11/01/18 05:38 11/04/18 06:22 Lab Results: Laboratory Results - last 24 hr 11/04/18 06:22 Sodium 138 Potassium 3.5 L Chloride 100.8 Carbon Dioxide 25 Anion Gap 16 BUN 11 Creatinine 1.0 Estimated GFR > 60 BUN/Creatinine Ratio 11 Glucose 104 H Calcium 8.8 Assessment and Plan 1.N/V -patient reports an acute onset of N/V and diarrhea after eating at [facility] -afebrile -WBC, H/H, LFTs, and lipase WNL -abd CT negative -etiology-most likely acute gastroenteritis vs food poisoning -clinically, patient is stable. Reports N/V and diarrhea are now resolved. Denies abd pain. Tolerating diet. -no plans for scope at this time -continue PPI and supportive care -patient okay to be d/c per GI standpoint with f/u in clinic as needed if symptoms reoccur -will sign off, please call if needed 2.HIV 3.HTN 4.obesity <DANA THOMAS - Last Filed: 11/04/18 13:26> Medications and Allergies Active Meds: Active Medications Acetaminophen (Tylenol) 650 mg PO Q4H PRN PRN Reason: Pain MILD(1-3)/Fever >100.5/[facility]CIAL Last Admin: 11/01/18 06:01 Dose: 650 mg Documented by: Amlodipine Besylate (Norvasc) 10 mg PO QDAY [facility] Last Admin: 11/04/18 10:17 Dose: 10 mg Documented by: Colchicine (Colchicine) 0.6 mg PO DAILY [facility] Last Admin: 11/04/18 11:37 Dose: 0.6 mg Documented by: Enoxaparin Sodium (Lovenox) 40 mg SUB-Q QDAY@1000 [facility] Last Admin: 11/04/18 10:17 Dose: 40 mg Documented by: Hydralazine HCl (Apresoline) 10 mg IV Q4H PRN PRN Reason: Hypertension Hydralazine HCl (Apresoline) 75 mg PO Q8HR [facility] Last Admin: 11/04/18 05:10 Dose: 75 mg Documented by: Potassium Chloride/Dextrose/Sod Cl (D5w/Ns W/Kcl 20meq) 20 meq in 1,000 mls @ 75 mls/hr IV DIRECT [facility] Last Admin: 11/04/18 11:37 Dose: 75 mls/hr Documented by: Metoclopramide HCl (Reglan) 10 mg IV Q6H PRN PRN Reason: Nausea And Vomiting Last Admin: 11/02/18 06:36 Dose: 10 mg Documented by: Metoprolol Tartrate (Lopressor) 25 mg PO BID [facility] Last Admin: 11/04/18 10:17 Dose: 25 mg Documented by: Morphine Sulfate (Morphine) 2 mg IV Q4H PRN PRN Reason: Pain, Moderate (4-6) Last Admin: 11/04/18 05:09 Dose: 2 mg Documented by: Ondansetron HCl (Zofran) 4 mg IV Q4H PRN PRN Reason: Nausea And Vomiting Last Admin: 11/03/18 05:21 Dose: 4 mg Documented by: Pantoprazole Sodium (Protonix) 40 mg IV QDAY [facility] Last Admin: 11/04/18 10:17 Dose: 40 mg Documented by: Promethazine HCl (Phenergan) 25 mg MD Q6H PRN PRN Reason: Nausea And Vomiting Last Admin: 11/03/18 08:49 Dose: 25 mg Documented by: Sodium Chloride (Sodium Chloride Flush Syringe 10 Ml) 10 ml IV BID [facility] Last Admin: 11/04/18 10:17 Dose: 10 ml Documented by: Sodium Chloride (Sodium Chloride Flush Syringe 10 Ml) 10 ml IV PRN PRN PRN Reason: LINE FLUSH Sucralfate (Carafate) 1 gm PO ACHS [facility] Last Admin: 11/04/18 11:41 Dose: Not Given Documented by: Exam - Constitutional Vital Signs: Temp Pulse Resp BP Pulse Ox 98.2 F 100 H 24 157/98 97 11/04/18 05:46 11/04/18 10:17 11/04/18 05:46 11/04/18 10:17 03/04/19 05:46 - Labs CBC & Chem 7: 11/01/18 05:38 11/04/18 06:22 Lab Results: Laboratory Results - last 24 hr 11/04/18 06:22 Sodium 138 Potassium 3.5 L Chloride 100.8 Carbon Dioxide 25 Anion Gap 16 BUN 11 Creatinine 1.0 Estimated GFR > 60 BUN/Creatinine Ratio 11 Glucose 104 H Calcium 8.8 Assessment and Plan Agree with advanced practitioner exam, assessment, and plan with additions below: Patient reports his nausea is starting to return; given time course and relationship to recent food poisoning suspect self limited infection as most li yamileth etiology. [place] diet, PRN anti-emetics; endoscopic evaluation unlikely to provide benefit at this time therefore will defer. If patient's symptoms fail to resolve or worsen significantly, or there is any GI bleeding, then please call back and we will pursue endoscopic evaluation. We will sign off, please call back as needed. Regarding follow up, as long as he is asymptomatic he will not require outpatient follow up.
[2018-11-04] MEDS: D5W/NS W/KCL 20MEQ 20 MEQ/1,000 ML BAG IV SCH (11:37)
[2018-11-04] MEDS: COLCHICINE PO SCH (11:37)
--- NOTE | 2018-11-04 11:57 | Discharge Summary ---
Providers - Providers Date of Admission: 10/31/18 22:06 Attending physician: LUNA COVINGTON MD 11/02/18 13:58 Physical Therapy Evaluation and Treat [CONS] Routine Comment: Reason For Exam: generalized weakness 11/03/18 13:30 Consult to Physician [CONS] Routine Comment: Consulting Provider: CONCHA PUGH Physician Instructions: Reason For Exam: Intractable N/V Primary care physician: CARTON STAMPER Hospitalization Reason for admission: GASTROENTERITIS Condition: Stable Hospital course: 28 year old man with a history of ?HIV, unknown CD4 count, hypertension comes emergency room with complaints of nausea vomiting and diarrhea that started last night after eating [employer]. The areas improve, and he feels dizzy and feels if he is going to pass out, decreased oral intake. Patient was seen by GI and was tolerating once again fast food he had someone deliver. No other recommendations was made, and he was dicharged with recommendation to follow with his PCP and also with his primary care doctor. Acute Gastroenteritis Sinus Tachy 2/2 dehydration from GI losses HTN Intractable nausea and vomiting Generalized weakness 2/2 above Hypokalemia Morbid Obesity with BMI of 49.3 Disposition: DC-01 TO HOME OR SELFCARE Time spent for discharge: 35 MINS Core Measure Documentation - Palliative Care Palliative Care/ Comfort Measures: Not Applicable - Core Measures Any of the following diagnoses?: none Exam - Physical Exam Narrative exam: General appearance: Present: no acute distress, obese - EENT Eyes: Present: PERRL, EOM intact ENT: hearing intact, clear oral mucosa - Neck Neck: Present: supple - Respiratory Respiratory effort: normal Respiratory: bilateral: CTA - Cardiovascular Rhythm: regular Heart Sounds: Present: S1 & S2 - Extremities Extremities: No edema - Abdominal General gastrointestinal: soft, non-tender, normal bowel sounds - Neurologic Neurologic: CNII-XII intact - Constitutional Vitals: Temp Pulse Resp BP Pulse Ox 98.2 F 100 H 24 157/98 97 11/04/18 05:46 11/04/18 10:17 11/04/18 05:46 11/04/18 10:17 11/04/18 05:46 Plan Activity: advance as tolerated, fall precautions Diet: regular Follow up with: EVANGELISTA GOODE MD [Referring] - 3-5 Days Forms: Work/School Release Form Prescriptions: Ondansetron [Zofran Odt] 4 mg PO Q6HR PRN #15 tab.rapdis PRN Reason: Nausea And Vomiting
[2018-11-04 15:43] VITALS: BP 148/92
== END 2018-11-04 20:37 | disposition home or self-care (01) | DRG 392 ==
LOC: ED 17:22 → 3A 22:06
PROVIDERS: ADMIT Internal Medicine; ATTEND Internal Medicine
DX: A08.4 Viral intestinal infection, unspecified (principal); Z68.43 Body mass index [BMI] 50.0-59.9, adult; T62.91XA Toxic effect of unspecified noxious substance eaten as food, accidental (unintentional), initial encounter; I10 Essential (primary) hypertension; Z21 Asymptomatic human immunodeficiency virus [HIV] infection status; E86.0 Dehydration; R00.0 Tachycardia, unspecified; E66.01 Morbid (severe) obesity due to excess calories; E87.6 Hypokalemia; R11.2 Nausea with vomiting, unspecified; Y92.89 Other specified places as the place of occurrence of the external cause
CPT/HCPCS: 36415; 74176; 80048; 80053; 83690; 83735; 85025; 96374; 96375; 99285; G0378; C9113; J0360; J1650; J2270; J2405; J2765; J3480; J7030

== ENCOUNTER 2021-04-07 12:14 | Emergency (ER) | payer SELFPAY ==
[2021-04-07 14:04] VITALS: BP 146/107
--- NOTE | 2021-04-07 14:08 | Emergency Department Report ---
- General Chief Complaint: Fever Stated Complaint: FEELING NAUSEA BODY ACHY PUI?: Yes Time Seen by Provider: 04/07/21 13:50 Source: patient Mode of arrival: Ambulatory Limitations: No Limitations - History of Present Illness Initial Comments: 30-year-old -[place] male with a past medical history of hypertension and HIV presents to the ER today with complaints of sore throat, cough and fever. Patient states that symptoms started about 4 days ago. He states that he has had a productive cough, with subjective fever, generalized body aches, decreased appetite and sore throat. He reports pain with swallowing and he states that he feels like his throat is swollen. He denies any difficulty opening his mouth or drooling. He denies any wheezing, chest pain or shortness of breath. He states that he has been nauseous, and he states that every time we try to eat he vomits. He denies any abdominal pain, diarrhea and/or UTI symptoms. He denies any ill contacts, known COVID-19 contacts, recent travel. He states that he did not get a COVID-19 test since he has been sick. He also did not get a COVID-19 vaccine. He states that he has been compliant with his high blood pressure and his HIV medications. He states that his last viral load was undetectable and his last refill count was about 500. Complaint: fever, cough, sore throat -: days(s) (4) - Related Data Previous Rx's Medication Instructions Recorded Last Taken Type Amoxicillin [Trimox CAP] 500 mg PO Q12H #20 capsule 04/07/21 Unknown Rx Ibuprofen [Motrin] 600 mg PO Q8H PRN #30 tablet 04/07/21 Unknown Rx Ondansetron [Zofran ODT TAB] 4 mg PO Q6HR PRN #15 tab.rapdis 04/07/21 Unknown Rx Allergies Allergy/AdvReac Type Severity Reaction Status Date / Time No Known Allergies Allergy Verified 04/07/21 12:19 ED Review of Systems ROS: Stated complaint: FEELING NAUSEA BODY ACHY Other details as noted in HPI Comment: All other systems reviewed and negative Constitutional: fever. denies: chills ENT: throat pain. denies: congestion Respiratory: cough. denies: shortness of breath, SOB with exertion, SOB at rest, wheezing Cardiovascular: denies: chest pain, palpitations Gastrointestinal: nausea, vomiting. denies: abdominal pain, diarrhea Genitourinary: denies: urgency, dysuria, frequency, hematuria, discharge, testicular pain, testicular mass Musculoskeletal: denies: back pain, joint swelling, arthralgia Skin: denies: rash, lesions, change in color, change in hair/nails, pruritus Neurological: denies: headache, weakness, numbness, paresthesias, confusion, abnormal gait, vertigo Psychiatric: denies: anxiety, depression, auditory hallucinations, visual hallucinations, homicidal thoughts, suicidal thoughts Hematological/Lymphatic: denies: easy bleeding, easy bruising ED Past Medical Hx - Past Medical History Hx Hypertension: Yes Hx HIV: Yes - Surgical History Past Surgical History?: No - Social History Smoking Status: Never Smoker Substance Use Type: None - Medications Home Medications: Home Medications Medication Instructions Recorded Confirmed Last Taken Type Amoxicillin [Trimox CAP] 500 mg PO Q12H #20 capsule 04/07/21 Unknown Rx Ibuprofen [Motrin] 600 mg PO Q8H PRN #30 tablet 04/07/21 Unknown Rx Ondansetron [Zofran ODT TAB] 4 mg PO Q6HR PRN #15 tab.rapdis 04/07/21 Unknown Rx ED Physical Exam - General Limitations: No Limitations General appearance: alert, in no apparent distress - Head Head exam: Present: atraumatic, normocephalic, normal inspection - Eye Eye exam: Present: normal appearance, PERRL, EOMI Pupils: Present: normal accommodation - ENT ENT exam: Present: mucous membranes moist - Expanded ENT Exam Expanded Mouth exam: Present: normal external inspection Throat exam: Positive: tonsillar erythema, tonsillomegaly, tonsillar exudate. Negative: R peritonsillar mass, L peritonsillar mass - Neck Neck exam: Present: normal inspection, full ROM. Absent: meningismus - Respiratory Respiratory exam: Present: normal lung sounds bilaterally. Absent: respiratory distress, wheezes, rales, rhonchi - Cardiovascular Cardiovascular Exam: Present: regular rate, normal rhythm, normal heart sounds - GI/Abdominal GI/Abdominal exam: Present: soft. Absent: distended, tenderness, guarding, rebound - Neurological Exam Neurological exam: Present: alert, oriented X3, CN II-XII intact, normal gait - Psychiatric Psychiatric exam: Present: normal affect, normal mood - Skin Skin exam: Present: intact ED Course Vital Signs 04/07/21 04/07/21 12:20 14:04 Temperature 98.8 F Pulse Rate 107 H 101 H Respiratory 24 Rate Blood Pressure 150/109 Blood Pressure 146/107 [Right] O2 Sat by Pulse 96 Oximetry ED Medical Decision Making - Radiology Data Radiology results: report reviewed Patient: TROY AMBRIZ MR#: [id number] : 1990 Acct:[id number] Age/Sex: 30 / M ADM Date: 04/07/21 Loc: ED Attending Dr: Ordering Physician: MUMTAZ HERNANDEZ Date of Service: 04/07/21 Procedure(s): XR chest routine 2V Accession Number(s): [id number] cc: MUMTAZ HERNANDEZ Fluoro Time In Minutes: CHEST 2 VIEWS INDICATION / CLINICAL INFORMATION: cough/hx hiv. COMPARISON: None available. FINDINGS: SUPPORT DEVICES: None. HEART / MEDIASTINUM: No significant abnormality. LUNGS / PLEURA: No significant pulmonary or pleural abnormality. No pneumothorax. ADDITIONAL FINDINGS: No significant additional findings. IMPRESSION: 1. No acute findings. Signer Name: Lali Payton MD Signed: 04/07/2021 2:39 PM Workstation Name: [id number] Transcribed By: DB Dictated By: LALI PATYON MD Electronically Authenticated By: LALI PAYTON MD Signed Date/Time: 04/07/211438 DD/ 38 TD/TT: - Medical Decision Making Chest x-ray shows nothing acute. Patient is nontoxic, not ill-appearing and not in any acute distress. He is well-hydrated. He is not in any respiratory distress. He is tolerating his secretions well. He has no drooling or trismus on exam. No stridor. His airway is intact. He is neurologically intact with a normal gait. Patient will be treated with antibiotics for possible strep throat as he does have tonsillar swelling with some exudates but I did recommend that he get an outpatient COVID- 19 test as well. Patient requesting a work note, and therefore he will be given a work note for the next couple days but he understands that if his COVID-19 test is positive he will need to quarantine per job protocol. Patient expressed understanding of instructions and agree with plan. Patient was stable at time of discharge Critical care attestation.: If time is entered above; I have spent that time in minutes in the direct care of this critically ill patient, excluding procedure time. ED Disposition Clinical Impression: Tonsillitis, Viral syndrome Disposition: DC-01 TO HOME OR SELFCARE Is pt being admited?: No Does the pt Need Aspirin: No Condition: Stable Instructions: Tonsillitis, [id number], Viral Illness, Adult Additional Instructions: Take the motrin, the antibiotics and the zofran as prescribed. I do recommend that you get a COVID-19 test from one of the local urgent cares or pharmacies. Recommend that you quarantine at home until we get the results of your test. Drink lots of fluids. Follow-up closely with your primary care doctor. Return to the ER if your symptoms changes or worsens in any way. Prescriptions: Ibuprofen [Motrin] 600 mg PO Q8H PRN #30 tablet PRN Reason: Pain Amoxicillin [Trimox CAP] 500 mg PO Q12H #20 capsule Ondansetron [Zofran ODT TAB] 4 mg PO Q6HR PRN #15 tab.rapdis PRN Reason: Nausea And Vomiting Referrals: PRIMARY CARE,MD [Primary Care Provider] - 3-5 Days Forms: Work/School Release Form(ED) Time of Disposition: 15:51
--- NOTE | 2021-04-07 15:47 | XRay Report ---
CHEST 2 VIEWS INDICATION / CLINICAL INFORMATION: cough/hx hiv. COMPARISON: None available. FINDINGS: SUPPORT DEVICES: None. HEART / MEDIASTINUM: No significant abnormality. LUNGS / PLEURA: No significant pulmonary or pleural abnormality. No pneumothorax. ADDITIONAL FINDINGS: No significant additional findings. IMPRESSION: 1. No acute findings. Signer Name: Jourdan Otero MD Signed: 04/07/2021 2:39 PM Workstation Name: [id number]
== END 2021-04-07 16:01 | disposition home or self-care (01) ==
LOC: ED 12:14
DX: J03.90 Acute tonsillitis, unspecified (principal); B34.9 Viral infection, unspecified; I10 Essential (primary) hypertension; Z79.899 Other long term (current) drug therapy; Z21 Asymptomatic human immunodeficiency virus [HIV] infection status
CPT/HCPCS: 71046

== ENCOUNTER 2021-05-25 19:23 | Emergency (ER) | payer SELFPAY ==
[2021-05-25] MEDS ORDERED: cloNIDine 0.2 MG TAB PO STA (21:03)
--- NOTE | 2021-05-25 21:04 | Emergency Department Report ---
ED General Adult HPI - General Chief complaint: Medical Clearance Stated complaint: NAUSEA, FEET SWOLLEN, GOUT Time Seen by Provider: 05/25/21 21:00 Source: patient Mode of arrival: Ambulatory Limitations: No Limitations - History of Present Illness Initial comments: 31-year-old F [place] male with significant elevated BMI p and past medical history of hypertension and gout with questionable medicate patient compliance presents emerged department complaining of having nausea and a couple episodes of vomiting last week with some diarrhea after eating at a buffet was unsure whether it was from his residual Covid symptoms or other food. That the symptoms have improved he reports no chest pain, no palpitation no hemoptysis no hematemesis no melena hematochezia no fever, chills, sweats. Also having some pain and swelling to his left foot which he thinks is secondary to a gout flareup but is out of his medication that is utilized to control the gout also seeks to have his blood pressure medications refilled which he has been out of them for the last 3 to 4 days but negative to find a primary care doctor in this area since moving here 6 to 7 months ago. States he primarily uses the emergency department for his primary care needs due to its its convenience. He reports no worsening symptoms -: Gradual Radiation: non-radiation Severity scale (0 -10): 3 Consistency: constant Improves with: none Worsens with: none Associated Symptoms: denies other symptoms Treatments Prior to Arrival: none - Related Data Previous Rx's Medication Instructions Recorded Last Taken Type Amoxicillin [Trimox CAP] 500 mg PO Q12H #20 capsule 04/07/21 Unknown Rx Ibuprofen [Motrin] 600 mg PO Q8H PRN #30 tablet 04/07/21 Unknown Rx Ondansetron [Zofran ODT TAB] 4 mg PO Q6HR PRN #15 tab.rapdis 04/07/21 Unknown Rx Amlodipine Besylate [Norvasc] 5 mg PO DAILY #20 tablet 05/25/21 Unknown Rx Indomethacin [Indocin] 25 mg PO Q8H #20 capsule 05/25/21 Unknown Rx Allergies Allergy/AdvReac Type Severity Reaction Status Date / Time No Known Allergies Allergy Verified 05/25/21 20:25 ED Review of Systems ROS: Stated complaint: NAUSEA, FEET SWOLLEN, GOUT Other details as noted in HPI Comment: All other systems reviewed and negative ED Past Medical Hx - Past Medical History Previous Medical History?: Yes Hx Hypertension: Yes Hx HIV: Yes - Surgical History Past Surgical History?: No - Social History Smoking Status: Never Smoker - Medications Home Medications: Home Medications Medication Instructions Recorded Confirmed Last Taken Type Amoxicillin [Trimox CAP] 500 mg PO Q12H #20 capsule 04/07/21 Unknown Rx Ibuprofen [Motrin] 600 mg PO Q8H PRN #30 tablet 04/07/21 Unknown Rx Ondansetron [Zofran ODT TAB] 4 mg PO Q6HR PRN #15 tab.rapdis 04/07/21 Unknown Rx Amlodipine Besylate [Norvasc] 5 mg PO DAILY #20 tablet 05/25/21 Unknown Rx Indomethacin [Indocin] 25 mg PO Q8H #20 capsule 05/25/21 Unknown Rx ED Physical Exam - General Limitations: No Limitations General appearance: alert, in no apparent distress - Head Head exam: Present: atraumatic, normocephalic - Eye Eye exam: Present: normal appearance, PERRL, EOMI Pupils: Present: normal accommodation - ENT ENT exam: Present: mucous membranes moist - Neck Neck exam: Present: normal inspection. Absent: full ROM - Respiratory Respiratory exam: Present: normal lung sounds bilaterally. Absent: respiratory distress - Cardiovascular Cardiovascular Exam: Present: regular rate, normal rhythm. Absent: systolic murmur, diastolic murmur, rubs, gallop - GI/Abdominal GI/Abdominal exam: Present: soft, normal bowel sounds - Rectal Rectal exam: Present: deferred - Extremities Exam Extremities exam: Present: normal inspection - Back Exam Back exam: Present: normal inspection. Absent: CVA tenderness (R), CVA tenderness (L) - Neurological Exam Neurological exam: Present: alert, oriented X3, CN II-XII intact - Psychiatric Psychiatric exam: Present: normal affect, normal mood. Absent: anxious, flat affect, manic - Skin Skin exam: Present: warm, dry, intact, normal color. Absent: rash, cyanosis, diaphoretic, erythema, petechiae, pallor ED Course Vital Signs 05/25/21 19:23 Temperature 99.0 F Pulse Rate 98 H Blood Pressure 194/133 ED Medical Decision Making - Medical Decision Making presents to the emergency department complaining of high blood pressure. Patient is otherwise asymptomatic without confusion, chest pain, hematuria, or SOB. BP today is 194/133 but after treatment was 135/94 Patient is not currently on medication Doubt CV, AMI, heart failure, renal infarction or failure or other end organ damage. Disposition:Discussed with patient their elevated blood pressure and need for close outpatient management of their hypertension. Will provide a prescription for the patients previous antihypertensive medication and arrange for the joe ent to follow up in a primary care clinic Disposition: Discussed with patient their elevated blood pressure and need for close outpatient management of their hypertension. Will provide a prescription for amlodipine 5mg PO daily and arrange for the patient to follow up in a primary care clinic Critical care attestation.: If time is entered above; I have spent that time in minutes in the direct care of this critically ill patient, excluding procedure time. ED Disposition Clinical Impression: Hypertension, Gouty arthritis of left foot Disposition: HOME / SELF CARE / HOMELESS Is pt being admited?: No Does the pt Need Aspirin: No Condition: Stable Instructions: Hypertension (ED), Low-Purine Eating Plan, Preventing Hypertension, Hypertension, Adult, [id number], Hypertension, Adult, Uric Acid Nephropathy, Calcium Pyrophosphate Deposition Prescriptions: Indomethacin [Indocin] 25 mg PO Q8H #20 capsule Amlodipine Besylate [Norvasc] 5 mg PO DAILY #20 tablet Referrals: [facility] [Provider Group] - 3-[address] [facility] [Outside] - 3-5 Days
[2021-05-25 23:02] VITALS: BP 135/94
== END 2021-05-26 01:05 | disposition home or self-care (01) ==
LOC: ED 19:23
DX: I10 Essential (primary) hypertension (principal); M10.072 Idiopathic gout, left ankle and foot
CPT/HCPCS: 99282

== ENCOUNTER 2021-06-09 16:13 | Observation (INO) | payer OTHER, SELFPAY ==
[2021-06-09] MEDS ORDERED: MECLIZINE 25 MG TAB PO ONE (17:36)
--- NOTE | 2021-06-09 17:37 | Emergency Department Report ---
ED Dizziness HPI - General Chief Complaint: Dizziness Stated Complaint: LEFT FOOT GOUT,NAUSEA,EARS HURTING Time Seen by Provider: 06/09/21 17:24 Source: patient Mode of arrival: Ambulatory Limitations: No Limitations - History of Present Illness Initial Comments: 31-year-old male with a past medical history of hypertension and HIV (non compliant with ID specialist visit and antiretrovirals for at least 6 mths) and gout presents to the ER today with complaints of feeling dizzy. Patient states that he has been having issues with dizziness since he was diagnosed with COVID- 19 April 13, 2021. Patient describes the dizziness as a spinning sensation. He states that it is worse when he turns his head. He reports associated intermittent vomiting with the dizziness. He denies any head injury. He states that all of his Covid symptoms have resolved but he still continues to feel dizzy. He states that his symptoms will balance when he walks. He denies any near syncopal or syncopal episodes. He reports no chest pain or shortness of breath, calf pain or lower extremity swelling. He denies any focal weakness, speech changes, numbness or tingling. He denies any fever, chills, headache or neck pain. he denies any history of CVA, or any history of PE or DVT or CAD. He denies any risk factors for PE. Patient states he is not sure of his last viral load or CD4 count. MD Complaint: dizziness -: Gradual, week(s) (since april 2021) Timing: gradual onset Description: "room spinning" History of Same: No History of Trauma: No Severity: mild, moderate - Related Data Previous Rx's Medication Instructions Recorded Last Taken Type Ondansetron [Zofran ODT TAB] 4 mg PO Q6HR PRN #15 tab.rapdis 04/07/21 Unknown Rx AtorvaSTATin [Lipitor] 40 mg PO QHS #30 tablet 06/12/21 Unknown Rx Losartan [Cozaar] 25 mg PO QDAY #30 tablet 06/12/21 Unknown Rx NIFEdipine XL [Procardia Xl] 30 mg PO QDAY #30 tablet 06/12/21 Unknown Rx Scopolamine [Transderm-Scop] 1 each TD Q3D #10 patch 06/12/21 Unknown Rx Allergies Allergy/AdvReac Type Severity Reaction Status Date / Time No Known Allergies Allergy Verified 05/25/21 20:25 ED Review of Systems ROS: Stated complaint: LEFT FOOT GOUT,NAUSEA,EARS HURTING Other details as noted in HPI Comment: All other systems reviewed and negative Constitutional: denies: chills, fever Eyes: denies: eye pain, eye discharge, vision change ENT: denies: ear pain, throat pain Respiratory: denies: cough, shortness of breath, SOB with exertion, SOB at rest, wheezing Endocrine: no symptoms reported Gastrointestinal: nausea, vomiting. denies: abdominal pain, diarrhea, constipation, hematemesis, hematochezia Genitourinary: denies: urgency, dysuria, frequency, hematuria, discharge, testicular pain, testicular mass Musculoskeletal: denies: back pain, joint swelling, arthralgia Skin: denies: rash, lesions Neurological: abnormal gait, vertigo. denies: headache, weakness, numbness, paresthesias, confusion Psychiatric: denies: anxiety, depression, auditory hallucinations, visual hallucinations, homicidal thoughts, suicidal thoughts Hematological/Lymphatic: denies: easy bleeding, easy bruising, swollen glands ED Past Medical Hx - Past Medical History Previous Medical History?: Yes Hx Hypertension: Yes Hx HIV: Yes - Surgical History Past Surgical History?: Yes - Social History Smoking Status: Never Smoker - Medications Home Medications: Home Medications Medication Instructions Recorded Confirmed Last Taken Type Ondansetron [Zofran ODT TAB] 4 mg PO Q6HR PRN #15 tab.rapdis 04/07/21 Unknown Rx AtorvaSTATin [Lipitor] 40 mg PO QHS #30 tablet 06/12/21 Unknown Rx Losartan [Cozaar] 25 mg PO QDAY #30 tablet 06/12/21 Unknown Rx NIFEdipine XL [Procardia Xl] 30 mg PO QDAY #30 tablet 06/12/21 Unknown Rx Scopolamine [Transderm-Scop] 1 each TD Q3D #10 patch 06/12/21 Unknown Rx ED Physical Exam - General Limitations: No Limitations General appearance: alert, in no apparent distress - Head Head exam: Present: atraumatic, normocephalic, normal inspection - Eye Eye exam: Present: normal appearance, PERRL, EOMI Pupils: Present: normal accommodation - ENT ENT exam: Present: normal exam, mucous membranes moist - Expanded ENT Exam Expanded TM/Canal exam: Effusion: Right TM, Left TM Mouth exam: Present: normal external inspection Throat exam: Positive: normal inspection - Neck Neck exam: Present: normal inspection, full ROM. Absent: meningismus - Respiratory Respiratory exam: Present: normal lung sounds bilaterally. Absent: respiratory distress, wheezes, rales, rhonchi - Cardiovascular Cardiovascular Exam: Present: regular rate, normal rhythm, normal heart sounds - GI/Abdominal GI/Abdominal exam: Present: soft. Absent: distended, tenderness, guarding, rebound - Extremities Exam Extremities exam: Present: normal inspection, full ROM. Absent: pedal edema, calf tenderness - Neurological Exam Neurological exam: Present: alert, oriented X3, CN II-XII intact, normal gait. Absent: motor sensory deficit - Expanded Neurological Exam Expanded Patient oriented to: Present: person, place, time Speech: Present: fluid speech Cranial nerves: EOM's Intact: Normal, Gag Reflex: Normal, Tongue Deviation: Normal, Nystagmus: Normal Cerebellar function: Finger to Nose: Normal, Heel to Iqbal: Normal, Romberg: Normal Sensory exam: Upper Extremity Light Touch: Normal, Lower Extremity Light Touch: Normal Motor strength exam: RUE: 5, LUE: 5, RLE: 5, LLE: 5 Best Eye Response (Janae): (4) open spontaneously Best Motor Response (Janae): (6) obeys commands Best Verbal Response (Janae): (5) oriented [place] Total: 15 - Psychiatric Psychiatric exam: Present: normal affect, normal mood - Skin Skin exam: Present: intact ED Course Vital Signs 06/09/21 06/09/21 06/09/21 16:45 19:08 20:11 Temperature 98.2 F 98.6 F Pulse Rate 111 H 94 H 99 H Pulse Rate [ Anterior Bilateral] Respiratory 18 18 20 Rate Respiratory Rate [Anterior Bilateral] Blood Pressure 129/47 195/140 Blood Pressure 191/135 [Left] Blood Pressure 179/122 [Right] O2 Sat by Pulse 97 100 Oximetry 06/09/21 06/09/21 06/09/21 22:41 22:45 23:01 Temperature Pulse Rate 104 H 109 H 102 H Pulse Rate [ Anterior Bilateral] Respiratory 19 15 13 Rate Respiratory Rate [Anterior Bilateral] Blood Pressure 189/128 189/128 Blood Pressure [Left] Blood Pressure [Right] O2 Sat by Pulse 100 100 Oximetry 06/09/21 06/10/21 06/10/21 23:40 00:01 00:29 Temperature Pulse Rate 88 88 91 H Pulse Rate [ Anterior Bilateral] Respiratory 10 L Rate Respiratory Rate [Anterior Bilateral] Blood Pressure 171/112 171/113 168/108 Blood Pressure [Left] Blood Pressure [Right] O2 Sat by Pulse 100 Oximetry 06/10/21 06/10/21 06/10/21 01:53 02:15 02:45 Temperature Pulse Rate 107 H 105 H Pulse Rate [ Anterior Bilateral] Respiratory 15 15 Rate Respiratory Rate [Anterior Bilateral] Blood Pressure Blood Pressure 167/98 145/98 [Left] Blood Pressure [Right] O2 Sat by Pulse 96 100 100 Oximetry 06/10/21 06/10/21 06/10/21 03:01 03:32 04:01 Temperature Pulse Rate 110 H 98 H 84 Pulse Rate [ Anterior Bilateral] Respiratory 17 24 28 H Rate Respiratory Rate [Anterior Bilateral] Blood Pressure 156/95 143/114 Blood Pressure 130/92 [Left] Blood Pressure [Right] O2 Sat by Pulse 99 98 97 Oximetry 06/10/21 06/10/21 06/10/21 04:53 05:01 05:26 Temperature 98.6 F Pulse Rate 99 H 99 H 103 H Pulse Rate [ Anterior Bilateral] Respiratory 8 L 14 Rate Respiratory Rate [Anterior Bilateral] Blood Pressure 156/104 156/104 159/107 Blood Pressure [Left] Blood Pressure [Right] O2 Sat by Pulse 100 100 Oximetry 06/10/21 06/10/21 06/10/21 05:30 07:07 08:59 Temperature Pulse Rate 105 H Pulse Rate [ 121 H Anterior Bilateral] Respiratory 14 Rate Respiratory 24 Rate [Anterior Bilateral] Blood Pressure 174/117 Blood Pressure 159/107 [Left] Blood Pressure [Right] O2 Sat by Pulse 100 99 Oximetry 06/10/21 06/10/21 06/10/21 10:00 11:01 12:03 Temperature Pulse Rate 105 H 93 H 92 H Pulse Rate [ Anterior Bilateral] Respiratory 18 47 H Rate Respiratory Rate [Anterior Bilateral] Blood Pressure 169/116 152/110 154/98 Blood Pressure [Left] Blood Pressure [Right] O2 Sat by Pulse 98 94 Oximetry 06/10/21 06/10/21 06/10/21 12:09 13:00 14:00 Temperature Pulse Rate 100 H 103 H 92 H Pulse Rate [ Anterior Bilateral] Respiratory 34 H 37 H Rate Respiratory Rate [Anterior Bilateral] Blood Pressure 156/98 160/106 137/92 Blood Pressure [Left] Blood Pressure [Right] O2 Sat by Pulse 95 97 Oximetry 06/10/21 06/10/21 06/10/21 15:00 16:00 17:00 Temperature Pulse Rate 89 106 H 100 H Pulse Rate [ Anterior Bilateral] Respiratory 13 10 L 14 Rate Respiratory Rate [Anterior Bilateral] Blood Pressure 142/100 148/104 150/99 Blood Pressure [Left] Blood Pressure [Right] O2 Sat by Pulse 99 99 100 Oximetry ED Medical Decision Making - Lab Data Result diagrams: 06/12/21 06:08 06/12/21 06:08 - EKG Data EKG shows normal: sinus rhythm Rate: tachycardia (105) No standard instances T wave inversions noted in: I, aVL, v5 Hyperacute T waves: v6 - Radiology Data Radiology results: report reviewed Patient: TROY AMBRIZ MR#: [id number] : 1990 Acct:[id number] Age/Sex: 31 / M ADM Date: 06/09/21 Loc: ED Attending Dr: Ordering Physician: MUMTAZ HERNANDEZ Date of Service: 06/09/21 Procedure(s): XR chest routine 2V Accession Number(s): [id number] cc: MUMTAZ HERNANDEZ Fluoro Time In Minutes: CHEST 2 VIEWS INDICATION: dizzy. COMPARISON: 04/07/2021 FINDINGS: SUPPORT DEVICES: None. HEART: Within normal limits. LUNGS/PLEURA: No acute air space or interstitial disease. No pneumothorax. ADDITIONAL FINDINGS: None. IMPRESSION: 1. No acute findings. Signer Name: John Alfaro MD Signed: 06/09/2021 7:46 PM Workstation Name: [id number] Transcribed By: DALE Dictated By: John Alfaro MD Electronically Authenticated By: John Alfaro MD Signed Date/Time: 06/09/211945 DD/ 45 TD/TT: Patient: TROY AMBRIZ MR#: [id number] : 1990 Acct:[id number] Age/Sex: 31 / M ADM Date: 06/09/21 Loc: ED Attending Dr: Ordering Physician: MUMTAZ HERNANDEZ Date of Service: 06/09/21 Procedure(s): CT head/brain wo con Accession Number(s): [id number] cc: MUMTAZ HERNANDEZ NONENHANCED CT SCAN OF THE HEAD: INDICATION / CLINICAL INFORMATION: 31 years Male; dizzy/elevated bp. TECHNIQUE: Routine CT head without contrast. All CT scans at this location are performed using CT dose reduction for ALARA by means of automated exposure control. COMPARISON: None. FINDINGS: BRAIN / INTRACRANIAL CONTENTS: No acute hemorrhage, mass effect, midline shift, hydrocephalus, or acute, large territorial infarct. Focal chronic ischemia in the left side of jen No significant white matter abnormality. CRANIOCERVICAL JUNCTION: No significant abnormality. ORBITS: No significant abnormality of visualized orbits. SINUSES / MASTOIDS: No significant abnormality of the visualized paranasal sinuses or mastoid air cells. ADDITIONAL FINDINGS: None. IMPRESSION: No acute focal parenchymal lesion in the brain Signer Name: Huan Gibbons MD Signed: 06/09/2021 9:33 PM Workstation Name: [id number] Transcribed By: BS Dictated By: Huan Carrington MD Electronically Authenticated By: Huan Carrington MD Signed Date/Time: 06/09/212132 DD/ 30 TD/TT: - Medical Decision Making All labs reviewed-CBC shows nothing acute. CMP shows elevated creatinine of 1.8, when compared to previous CMP's, his previous creatinine has been normal, and therefore elevated creatinine of 1.8 is concerning for acute kidney injury. His initial troponin is normal. Chest x-ray shows nothing acute. Head CT normal. Patient repeated blood pressures have been increasing throughout stay. Patient admits that he has been taking his Norvasc off and on, and he took his last Norvasc today. He states that he has been trying to get as needed because he does not have a PCP to follow-up with to get refills. Discussed case with Dr. Bo, given patient symptomology, acute kidney injury, and worsening her blood pressure, I recommend admitting patient to the hospital. Discussed case with Dr Fishman, hospitalist, for admission Critical care attestation.: If time is entered above; I have spent that time in minutes in the direct care of this critically ill patient, excluding procedure time. ED Disposition Clinical Impression: Acute renal injury, Dizzy, Hypertensive emergency Disposition: 09 ADMITTED INPATIENT Is pt being admited?: Yes Does the pt Need Aspirin: No Condition: Good
[2021-06-09 17:55] LABS: Basophils % (Auto) 0.7 % (0.0-1.8); Eosinophils # (Auto) 0.1 K/mm3 (0.0-0.4); Eosinophils % (Auto) 1.2 % (0.0-4.3); Hematocrit 42.3 % (35.5-45.6); Hemoglobin 13.8 gm/dl (11.8-15.2); Lymphocytes # (Auto) 1.7 K/mm3 (1.2-5.4); Lymphocytes % (Auto) 36.9 % (13.4-35.0); Mean Corpuscular HGB Conc 33 % (32-34); Mean Corpuscular Volume 78 fl (84-94); Monocytes # (Auto) 0.4 K/mm3 (0.0-0.8); Monocytes % (Auto) 9.3 % (0.0-7.3); Platelet Count 280 K/mm3 (140-440); Red Blood Count 5.46 M/mm3 (3.65-5.03); Red Cell Distribution Width 15.5 % (13.2-15.2)
[2021-06-09 18:14] LABS: Albumin 4.1 g/dL (3.9-5); Calcium 9.6 mg/dL (8.4-10.2)
[2021-06-09] MEDS: SODIUM CHLORIDE 0.9% 1000 ML 1,000 ML IV ONE ×2 (18:27→22:12)
[2021-06-09] MEDS ORDERED: amLODIPine 5 MG TAB PO ONE (19:16)
[2021-06-09] MEDS ORDERED: ACETAMINOPHEN 325 MG TAB PO ONE (19:18)
--- NOTE | 2021-06-09 19:50 | XRay Report ---
CHEST 2 VIEWS INDICATION: dizzy. COMPARISON: 04/07/2021 FINDINGS: SUPPORT DEVICES: None. HEART: Within normal limits. LUNGS/PLEURA: No acute air space or interstitial disease. No pneumothorax. ADDITIONAL FINDINGS: None. IMPRESSION: 1. No acute findings. Signer Name: John Alfaro MD Signed: 06/09/2021 7:46 PM Workstation Name: [id number]
[2021-06-09] MEDS ORDERED: cloNIDine 0.2 MG TAB PO ONE (20:16)
[2021-06-09] MEDS ORDERED: hydrALAZINE 20 MG/1 ML INJ IV ONE (21:27)
[2021-06-09] MEDS ORDERED: ACETAMINOPHEN 325 MG TAB ONE (21:36)
--- NOTE | 2021-06-09 21:38 | Cat Scan Report ---
NONENHANCED CT SCAN OF THE HEAD: INDICATION / CLINICAL INFORMATION: 31 years Male; dizzy/elevated bp. TECHNIQUE: Routine CT head without contrast. All CT scans at this location are performed using CT dos e reduction for ALARA by means of automated exposure control. COMPARISON: None. FINDINGS: BRAIN / INTRACRANIAL CONTENTS: No acute hemorrhage, mass effect, midline shift, hydrocephalus, or acu te, large territorial infarct. Focal chronic ischemia in the left side of jen No significant white m atter abnormality. CRANIOCERVICAL JUNCTION: No significant abnormality. ORBITS: No significant abnormality of visualized orbits. SINUSES / MASTOIDS: No significant abnormality of the visualized paranasal sinuses or mastoid air [place]. ADDITIONAL FINDINGS: None. IMPRESSION: No acute focal parenchymal lesion in the brain Signer Name: Huan Gibbons MD Signed: 06/09/2021 9:33 PM Workstation Name: [id number]
[2021-06-09] MEDS ORDERED: oxyCODONE /ACETAMINOPHEN 5-325MG TAB PO PRN (22:32)
[2021-06-09] MEDS ORDERED: HYDROmorphone 1 MG/1 ML INJ IV PRN (22:32)
[2021-06-09] MEDS ORDERED: ALBUTEROL 2.5 MG/3 ML NEBU IH PRN (22:32)
[2021-06-09] MEDS ORDERED: ONDANSETRON 4 MG/2 ML INJ IV PRN (22:32)
[2021-06-09] MEDS ORDERED: ACETAMINOPHEN 325 MG TAB PO PRN (22:32)
--- NOTE | 2021-06-09 22:41 | History and Physical Report ---
History of Present Illness Date of examination: 06/09/21 Date of admission: 06/09/21 Chief complaint: Dizziness History of present illness: 31-year-old male with a past medical history of hypertension and HIV noncompliant and gout was brought to the emergency room because of feeling dizzy. Patient has been having issues with dizziness since he was diagnosed with COVID-April 13, 2021. Patient describes the dizziness as a spinning sensation. He states that it is worse when he turns his head. He reports associated intermittent vomiting with the dizziness. He denies any head injury. He states that all of his Covid symptoms have resolved but he still continues to feel dizzy. He states that his symptoms will balance when he walks. He denies any near syncopal or syncopal episodes. He reports no chest pain or shortness of breath, calf pain or lower extremity swelling. He denies any focal weakness, speech changes, numbness or tingling. He denies any fever, chills, headache or neck pain. he denies any history of CVA, or any history of PE or DVT or CAD. He denies any risk factors for PE. Patient states he is not sure of his last viral load or CD4 count. In the emergency room initial CT scan of the head shows no acute intracranial abnormality. But patient blood pressure is 191/135. BUN is 19 and creatinine 1.8 We will going to admit the patient with a diagnosis of dizziness hypertensive emergency and TERRELL Med rec is done Past History Past Medical History: HIV/AIDS, hypertension, other (Gout) Medications and Allergies Allergies Allergy/AdvReac Type Severity Reaction Status Date / Time No Known Allergies Allergy Verified 05/25/21 20:25 Home Medications Medication Instructions Recorded Confirmed Last Taken Type Amoxicillin [Trimox CAP] 500 mg PO Q12H #20 capsule 04/07/21 Unknown Rx Ibuprofen [Motrin] 600 mg PO Q8H PRN #30 tablet 04/07/21 Unknown Rx Ondansetron [Zofran ODT TAB] 4 mg PO Q6HR PRN #15 tab.rapdis 04/07/21 Unknown Rx Amlodipine Besylate [Norvasc] 5 mg PO DAILY #20 tablet 05/25/21 Unknown Rx Indomethacin [Indocin] 25 mg PO Q8H #20 capsule 05/25/21 Unknown Rx Active Meds: Active Medications Acetaminophen (Acetaminophen 325 Mg Tab) 650 mg PO Q4H PRN PRN Reason: Pain MILD(1-3)/Fever >100.5/MARCIAL Albuterol (Albuterol 2.5 Mg/3 Ml Nebu) 2.5 mg IH Q4HRT PRN PRN Reason: Shortness Of Breath Albuterol/Ipratropium (Ipratropium/Albuterol Sulfate 3 Ml Ampul.Neb) 1 ampul IH Q6HRT RYANN Amlodipine Besylate (Amlodipine 5 Mg Tab) 5 mg PO DAILY [facility] Amoxicillin (Amoxicillin 500 Mg Cap) 500 mg PO Q12H RYANN; Protocol Hydralazine HCl (Hydralazine 20 Mg/1 Ml Inj) 10 mg IV Q6H PRN PRN Reason: Blood Pressure Hydromorphone HCl (Hydromorphone 1 Mg/1 Ml Inj) 0.5 mg IV Q3H PRN PRN Reason: Pain , Severe (7-10) Sodium Chloride (Nacl 0.45% 1000 Ml) 1,000 mls @ 75 mls/hr IV DIRECT RYANN Indomethacin (Indomethacin 25 Mg Cap) 25 mg PO Q8H [facility] Ondansetron HCl (Ondansetron 4 Mg/2 Ml Inj) 4 mg IV Q8H PRN PRN Reason: Nausea And Vomiting Oxycodone/Acetaminophen (Oxycodone /Acetaminophen 5-325mg Tab) 1 tab PO Q6H PRN PRN Reason: Pain, Moderate (4-6) Sodium Chloride (Sodium Chloride 0.9% 10 Ml Flush Syringe) 10 ml IV BID [facility] Sodium Chloride (Sodium Chloride 0.9% 10 Ml Flush Syringe) 10 ml IV PRN PRN PRN Reason: LINE FLUSH Review of Systems All systems: negative Constitutional: other (Dizziness) Ears, nose, mouth and throat: other (Ears hurting) Gastrointestinal: nausea, vomiting Musculoskeletal: other (Left foot gout) Exam - Constitutional Vitals: Temp Pulse Resp BP Pulse Ox 98.6 F 99 H 20 195/140 100 06/09/21 19:08 06/09/21 20:11 06/09/21 20:11 06/09/21 20:11 06/09/21 20:11 General appearance: Present: no acute distress, well-nourished - EENT Eyes: Present: PERRL ENT: hearing intact, clear oral mucosa - Neck Neck: Present: supple, normal ROM - Respiratory Respiratory effort: normal Respiratory: bilateral: CTA - Cardiovascular Heart Sounds: Present: S1 & S2. Absent: rub, click - Extremities Extremities: pulses symmetrical, No edema Peripheral Pulses: within normal limits - Abdominal General gastrointestinal: Present: soft, non-tender, non-distended, normal bowel sounds Male genitourinary: Present: normal - Integumentary Integumentary: Present: clear, warm, dry - Musculoskeletal Musculoskeletal: gait normal, strength equal bilaterally - Psychiatric Psychiatric: appropriate mood/affect, intact judgment & insight - Neurologic Neurologic: CNII-XII intact, moves all extremities HEART Score - HEART Score Troponin: Troponin T < 0.010 ng/mL (0.00-0.029) 06/09/21 19:43 Results - Labs CBC & Chem 7: 06/09/21 17:43 06/09/21 17:43 Labs: Laboratory Last Values WBC 4.6 K/mm3 (4.5-11.0) 06/09/21 17:43 RBC 5.46 M/mm3 (3.65-5.03) H 06/09/21 17:43 Hgb 13.8 gm/dl (11.8-15.2) 06/09/21 17:43 Hct 42.3 % (35.5-45.6) 06/09/21 17:43 MCV 78 fl (84-94) L 06/09/21 17:43 MCH 25 pg (28-32) L 06/09/21 17:43 MCHC 33 % (32-34) 06/09/21 17:43 RDW 15.5 % (13.2-15.2) H 06/09/21 17:43 Plt Count 280 K/mm3 (140-440) 06/09/21 17:43 Lymph % (Auto) 36.9 % (13.4-35.0) H 06/09/21 17:43 Bibb % (Auto) 9.3 % (0.0-7.3) H 06/09/21 17:43 Eos % (Auto) 1.2 % (0.0-4.3) 06/09/21 17:43 Baso % (Auto) 0.7 % (0.0-1.8) 06/09/21 17:43 Lymph # (Auto) 1.7 K/mm3 (1.2-5.4) 06/09/21 17:43 Bibb # (Auto) 0.4 K/mm3 (0.0-0.8) 06/09/21 17:43 Eos # (Auto) 0.1 K/mm3 (0.0-0.4) 06/09/21 17:43 Baso # (Auto) 0.0 K/mm3 (0.0-0.1) 06/09/21 17:43 Seg Neutrophils % 51.9 % (40.0-70.0) 06/09/21 17:43 Seg Neutrophils # 2.4 K/mm3 (1.8-7.7) 06/09/21 17:43 Sodium 137 mmol/L (137-145) 06/09/21 17:43 Potassium 3.7 mmol/L (3.6-5.0) 06/09/21 17:43 Chloride 99.1 mmol/L (98-107) 06/09/21 17:43 Carbon Dioxide 24 mmol/L (22-30) 06/09/21 17:43 Anion Gap 18 mmol/L 06/09/21 17:43 BUN 19 mg/dL (9-20) 06/09/21 17:43 Creatinine 1.8 mg/dL (0.8-1.3) H 06/09/21 17:43 Estimated GFR 53 ml/min 06/09/21 17:43 BUN/Creatinine Ratio 11 % 06/09/21 17:43 Glucose 99 mg/dL (75-100) 06/09/21 17:43 Calcium 9.6 mg/dL (8.4-10.2) 06/09/21 17:43 Magnesium 1.80 mg/dL (1.7-2.3) 06/09/21 17:43 Total Bilirubin 0.40 mg/dL (0.1-1.2) 06/09/21 17:43 AST 14 units/L (5-40) 06/09/21 17:43 ALT 13 units/L (7-56) 06/09/21 17:43 Alkaline Phosphatase 73 units/L (35-129) 06/09/21 17:43 Troponin T < 0.010 ng/mL (0.00-0.029) 06/09/21 19:43 Total Protein 8.7 g/dL (6.3-8.2) H 06/09/21 17:43 Albumin 4.1 g/dL (3.9-5) 06/09/21 17:43 Albumin/Globulin Ratio 0.9 % 06/09/21 17:43 - Imaging and Cardiology CT scan - chest: report reviewed CT Scan - head: report reviewed Assessment and Plan VTE prophylaxis?: Chemical Plan of care discussed with patient/family: Yes - Patient Problems (1) Dizziness Status: Acute Plan to address problem: Admit the patient to the medical telemetry. Half-normal saline at the rate of 75 cc/h. We do the serial cardiac enzyme we also do echocardiogram will consult neurology for evaluation (2) Acute renal injury Status: Acute Plan to address problem: Avoid nephrotoxic drug. Half-normal saline at the rate of 75 cc/h. Renally dose medication recheck BMP in the morning (3) Gouty arthritis of left foot Status: Acute Plan to address problem: We will continue the home medication. we will monitor the patient closely (4) Hypertensive emergency Status: Acute Plan to address problem: Norvasc 5 mg p.o. daily. Hydralazine 10 mg IV every 6 hours as needed. Lisinopril 5 mg p.o. daily. We will monitor the blood pressure closely (5) Nausea & vomiting Status: Acute Qualifiers: Vomiting type: unspecified Vomiting Intractability: non-intractable Qualified Code(s): R11.2 - Nausea with vomiting, unspecified Plan to address problem: Pepcid 20 mg IV every 12 hours. Zofran 4 million IV every 6 hours as needed. H prison-normal saline at the rate of 100 cc/h. (6) DVT prophylaxis Status: Acute Plan to address problem: SCD for DVT prophylaxis. Pepcid 20 mg p.o. twice daily for GI prophylaxis. Patient is a full code
[2021-06-09] MEDS ORDERED: METOPROLOL TARTRATE 5 MG/5 ML INJ IV ONE (22:54)
[2021-06-09] MEDS ORDERED: INDOMETHACIN 25 MG CAP PO SCH (23:00)
[2021-06-09] MEDS ORDERED: SODIUM CHLORIDE 0.45% 1000 ML 1,000 ML IV SCH (23:00)
[2021-06-09] MEDS: AMOXICILLIN 500 MG CAP PO SCH (23:40)
[2021-06-10] MEDS: hydrALAZINE 20 MG/1 ML INJ IV PRN ×2 (00:29→07:07)
[2021-06-10] MEDS ORDERED: LISINOPRIL 5 MG TAB PO ONE (02:24)
[2021-06-10] MEDS ORDERED: cloNIDine 0.1 MG TAB PO ONE (02:25)
[2021-06-10] MEDS ORDERED: hydrALAZINE 20 MG/1 ML INJ IV ONE (02:25)
[2021-06-10] MEDS ORDERED: LISINOPRIL 10 MG TAB PO ONE (04:40)
[2021-06-10] MEDS: IPRATROPIUM/ALBUTEROL SULFATE 3 ML AMPUL.NEB IH SCH ×4 (04:44→21:02)
[2021-06-10 07:09] LABS: Basophils % (Auto) 0.8 % (0.0-1.8); Eosinophils # (Auto) 0.1 K/mm3 (0.0-0.4); Eosinophils % (Auto) 1.3 % (0.0-4.3); Hematocrit 37.7 % (35.5-45.6); Hemoglobin 12.7 gm/dl (11.8-15.2); Lymphocytes # (Auto) 1.7 K/mm3 (1.2-5.4); Lymphocytes % (Auto) 36.7 % (13.4-35.0); Mean Corpuscular HGB Conc 34 % (32-34); Mean Corpuscular Volume 76 fl (84-94); Monocytes # (Auto) 0.7 K/mm3 (0.0-0.8); Monocytes % (Auto) 14.7 % (0.0-7.3); Platelet Count 240 K/mm3 (140-440); Red Blood Count 4.97 M/mm3 (3.65-5.03); Red Cell Distribution Width 15.7 % (13.2-15.2)
[2021-06-10 07:32] LABS: BUN/Creatinine Ratio 11; Blood Urea Nitrogen 17 mg/dL (9-20); Calcium 9.2 mg/dL (8.4-10.2); Hemolysis Index 4
--- NOTE | 2021-06-10 08:35 | Electrocardiograph Report ---
[facility] Test Date: 2021-06-09 Test Time: 18:05:33 Pat Name: TROY AMBRIZ Department: Room: Gender: M Benefits Specialist Recruiter: DOMONIQUE : 1990 Requested By: MUMTAZ HERNANDEZ Order Number: [id number] Reading MD: Markie Ivey Measurements Intervals [place] Rate: 105 P: 55 DC: 162 QRS: -27 QRSD: 94 T: 148 QT: 366 QTc: 486 Interpretive Statements Sinus tachycardia Abnormal T, probable ischemia, lateral leads No previous ECG available for comparison Electronically Signed On 06-10-2021 8:34:51 EDT by Markie Ivey
[2021-06-10] MEDS ORDERED: LISINOPRIL 5 MG TAB PO SCH (10:00)
[2021-06-10] MEDS: amLODIPine 5 MG TAB PO SCH (12:09)
[2021-06-10] MEDS: AMOXICILLIN 500 MG CAP PO SCH ×2 (12:09→22:00)
--- NOTE | 2021-06-10 12:15 | Consultation ---
History of Present Illness Consult date: 06/10/21 Reason for Consult: recurrent vertigo,Hx of HIV,Hx of COVID-19 in april and may History of present illness: Dizziness History of present illness: 31-year-old male with a past medical history of hypertension and HIV noncompliant and gout was brought to the emergency room because of feeling dizzy. Patient has been having issues with dizziness since he was diagnosed with COVID-19 April 13, 2021. Patient describes the dizziness as a spinning sensation. He states that it is worse when he turns his head. He reports associated intermittent vomiting with the dizziness. He denies any head injury. He states that he had reinfection with COVID-19 again early this month which resulted in nausea and vomiting and recurrent dizziness He states that his symptoms will balance when he walks. He denies any near syncopal or syncopal episodes. He reports no chest pain or shortness of breath, calf pain or lower extremity swelling. He denies any focal weakness, speech changes, numbness or tingling. He denies any fever, chills, headache or neck pain. he denies any history of CVA, or any history of PE or DVT or CAD. He denies any risk factors for PE. Patient states he is not sure of his last viral load or CD4 count. In the emergency room initial CT scan of the head shows no acute intracranial abnormality. But patient blood pressure is 191/135. BUN is 19 and creatinine 1.8 We will going to admit the patient with a diagnosis of dizziness hypertensive emergency and TERRE[facility] Med rec is done Past History Past Medical History: HIV/AIDS, hypertension, -other (Gout) -Hx of COVID-19 in april and may ? Medications and Allergies Allergies Allergy/AdvReac Type Severity Reaction Status Date / Time No Known Allergies Allergy Verified 05/25/21 20:25 Home Medications Medication Instructions Recorded Confirmed Last Taken Type Amoxicillin [Trimox CAP] 500 mg PO Q12H #20 capsule 04/07/21 Unknown Rx Ibuprofen [Motrin] 600 mg PO Q8H PRN #30 tablet 04/07/21 Unknown Rx Ondansetron [Zofran ODT TAB] 4 mg PO Q6HR PRN #15 tab.rapdis 04/07/21 Unknown Rx Amlodipine Besylate [Norvasc] 5 mg PO DAILY #20 tablet 05/25/21 Unknown Rx Indomethacin [Indocin] 25 mg PO Q8H #20 capsule 05/25/21 Unknown Rx Active Meds: Active Medications Acetaminophen (Acetaminophen 325 Mg Tab) 650 mg PO Q4H PRN PRN Reason: Pain MILD(1-3)/Fever >100.5/MARCIAL Albuterol (Albuterol 2.5 Mg/3 Ml Nebu) 2.5 mg IH Q4HRT PRN PRN Reason: Shortness Of Breath Albuterol/Ipratropium (Ipratropium/Albuterol Sulfate 3 Ml Ampul.Neb) 1 ampul IH Q6HRT RYANN Amlodipine Besylate (Amlodipine 5 Mg Tab) 5 mg PO DAILY RYANN Amoxicillin (Amoxicillin 500 Mg Cap) 500 mg PO Q12H RYANN; Protocol Hydralazine HCl (Hydralazine 20 Mg/1 Ml Inj) 10 mg IV Q6H PRN PRN Reason: Blood Pressure Hydromorphone HCl (Hydromorphone 1 Mg/1 Ml Inj) 0.5 mg IV Q3H PRN PRN Reason: Pain , Severe (7-10) Sodium Chloride (Nacl 0.45% 1000 Ml) 1,000 mls @ 75 mls/hr IV DIRECT RYANN Indomethacin (Indomethacin 25 Mg Cap) 25 mg PO Q8H RYANN Ondansetron HCl (Ondansetron 4 Mg/2 Ml Inj) 4 mg IV Q8H PRN PRN Reason: Nausea And Vomiting Oxycodone/Acetaminophen (Oxycodone /Acetaminophen 5-325mg Tab) 1 tab PO Q6H PRN PRN Reason: Pain, Moderate (4-6) Sodium Chloride (Sodium Chloride 0.9% 10 Ml Flush Syringe) 10 ml IV BID RYANN Sodium Chloride (Sodium Chloride 0.9% 10 Ml Flush Syringe) 10 ml IV PRN PRN PRN Reason: LINE FLUSH Review of Systems All systems: negative Constitutional: other (Dizziness) Ears, nose, mouth and throat: other (Ears hurting) Gastrointestinal: nausea, vomiting Musculoskeletal: other (Left foot gout) Past History Past Medical History: HIV/AIDS, hypertension, other (Gout) Medications and Allergies Allergies Allergy/AdvReac Type Severity Reaction Status Date / Time No Known Allergies Allergy Verified 05/25/21 20:25 Home Medications Medication Instructions Recorded Confirmed Last Taken Type Amoxicillin [Trimox CAP] 500 mg PO Q12H #20 capsule 04/07/21 Unknown Rx Ibuprofen [Motrin] 600 mg PO Q8H PRN #30 tablet 04/07/21 Unknown Rx Ondansetron [Zofran ODT TAB] 4 mg PO Q6HR PRN #15 tab.rapdis 04/07/21 Unknown Rx Amlodipine Besylate [Norvasc] 5 mg PO DAILY #20 tablet 05/25/21 Unknown Rx Indomethacin [Indocin] 25 mg PO Q8H #20 capsule 05/25/21 Unknown Rx Active Meds: Active Medications Acetaminophen (Acetaminophen 325 Mg Tab) 650 mg PO Q4H PRN PRN Reason: Pain MILD(1-3)/Fever >100.5/MARCIAL Albuterol (Albuterol 2.5 Mg/3 Ml Nebu) 2.5 mg IH Q4HRT PRN PRN Reason: Shortness Of Breath Albuterol/Ipratropium (Ipratropium/Albuterol Sulfate 3 Ml Ampul.Neb) 1 ampul IH Q6HRT [facility] Last Admin: 06/10/21 08:54 Dose: 1 ampul Documented by: Amlodipine Besylate (Amlodipine 5 Mg Tab) 5 mg PO DAILY [facility] Last Admin: 06/10/21 12:09 Dose: 5 mg Documented by: Amoxicillin (Amoxicillin 500 Mg Cap) 500 mg PO Q12HR [facility]; Protocol Last Admin: 06/10/21 12:09 Dose: 500 mg Documented by: Hydralazine HCl (Hydralazine 20 Mg/1 Ml Inj) 10 mg IV Q6H PRN PRN Reason: Blood Pressure Last Admin: 06/10/21 07:07 Dose: 10 mg Documented by: Hydromorphone HCl (Hydromorphone 1 Mg/1 Ml Inj) 0.5 mg IV Q3H PRN PRN Reason: Pain , Severe (7-10) Sodium Chloride (Nacl 0.45% 1000 Ml) 1,000 mls @ 75 mls/hr IV DIRECT RYANN Lisinopril (Lisinopril 5 Mg Tab) 5 mg PO DAILY [facility] Last Admin: 06/10/21 12:03 Dose: 5 mg Documented by: Ondansetron HCl (Ondansetron 4 Mg/2 Ml Inj) 4 mg IV Q8H PRN PRN Reason: Nausea And Vomiting Oxycodone/Acetaminophen (Oxycodone /Acetaminophen 5-325mg Tab) 1 tab PO Q6H PRN PRN Reason: Pain, Moderate (4-6) Sodium Chloride (Sodium Chloride 0.9% 10 Ml Flush Syringe) 10 ml IV BID RYANN Last Admin: 06/10/21 12:08 Dose: 10 ml Documented by: Sodium Chloride (Sodium Chloride 0.9% 10 Ml Flush Syringe) 10 ml IV PRN PRN PRN Reason: LINE FLUSH Physical Examination - Vital Signs Vital Signs: Vital Signs Temp Pulse Resp BP Pulse Ox 98.2 F 111 H 18 129/47 97 06/09/21 16:45 06/09/21 16:45 06/09/21 16:45 06/09/21 16:45 06/09/21 16:45 - Constitutional General appearance: comfortable - EENT EENT: Present: PERRL, mucous membranes moist - Respiratory Respiratory: Present: chest non-tender, lungs clear, rhonchi - Cardiovascular Cardiovascular: Present: regular rate, normal S1, normal S2 Extremities: Present: no peripheral edema bilatateraly, no clubbing, cyanosis - Gastrointestinal Gastrointestinal: Present: normoactive bowel sounds - Integumentary Integumentary: Present: normal - Neurologic Cranial nerve examination: PERRL, EOMI, VFF, intact Speech examination: intact Sensorimotor examination: intact Detailed motor examination: grossly full strength in - Level of Consciousness 1a. Level of Consciousness: alert/keenly responsive - LOC Questions 1b. LOC Questions: answers both correctly - LOC Command 1c. LOC Commands: performs tasks correctly - Best Gaze 2. Best Gaze: normal - Visual 3. Visual: no visual loss - Facial Palsy 4. Facial Palsy: normal symmetrical movement - Motor Arm 5a. Motor Arm Left: no drift 5b. Motor Arm Right: no drift - Motor Leg 6a. Motor Leg Left: no drift 6b. Motor Leg Right: no drift - Limb Ataxia 7. Limb Ataxia: absent - Sensory 8. Sensory: normal - Best Language 9. Best Language: no aphasia - Dysarthria 10. Dysarthria: normal - Extinction and Inattention 11. Extinction/Inattention: no abnormality - Scoring Total Score: 0 Stroke Severity: No Stroke Symptoms Results - Laboratory Findings CBC and BMP: 06/10/21 06:38 06/10/21 06:38 Abnormal Lab Findings: Abnormal Labs 06/09/21 06/09/21 06/10/21 17:43 17:43 06:38 RBC 5.46 H MCV 78 L 76 L MCH 25 L 26 L RDW 15.5 H 15.7 H Lymph % (Auto) 36.9 H 36.7 H [place] % (Auto) 9.3 H 14.7 H Creatinine 1.8 H Total Protein 8.7 H 06/10/21 06:38 RBC MCV MCH RDW Lymph % (Auto) [place] % (Auto) Creatinine 1.5 H Total Protein Assessment and Plan Assessment and Plan VTE prophylaxis?: Chemical Plan of care discussed with patient/family: Yes - Patient Problems # Dizziness/ vertigo for over a month on and off -NIH#0 -elevated BP#191/135 initially -not comply with medications -CT brain is unremarkable -not candidate for TPA nor thrombectomy -Suggest CTA brain and neck due to hx of COVID and brain MRI -ASA 81 mg daily and lipitor 40 mg -LDL is pending -antivert 12.5 prn qid # Acute renal injury -Avoid nephrotoxic drug. - Half-normal saline at the rate of 75 cc/h. - Renally dose medication recheck BMP in the morning -BUN/Cr# 17/1.5 # Gouty arthritis of left foot -We will continue the home medication. we will monitor the patient closely # Hypertensive emergency -Norvasc 5 mg p.o. daily. - Hydralazine 10 mg IV every 6 hours as needed. - Lisinopril 5 mg p.o. daily. -We will monitor the blood pressure closely # Nausea & vomiting -Pepcid 20 mg IV every 12 hours. - Zofran 4 million IV every 6 hours as needed. - Half-normal saline at the rate of 100 cc/h. # Hx of HIV -poor compliance with medications # Hx of COVID-19 in april ? and may -check inflammatory markers -he is with increase N and V he relate to COVID -19? # DVT prophylaxis -SCD for DVT prophylaxis. Pepcid 20 mg p.o. twice daily for GI prophylaxis. Patient is a full code will follow
[2021-06-10] MEDS ORDERED: ASPIRIN 325 MG TAB PO SCH (13:00)
[2021-06-10] MEDS: ASPIRIN 81 MG TAB CHEW PO SCH (14:40)
--- NOTE | 2021-06-10 17:54 | Cat Scan Report ---
CTA HEAD AND NECK WITH CONTRAST HISTORY: Dizziness and elevated blood pressure COMPARISON: Head CT on 06/09/2021 TECHNIQUE: All CT scans at this location are performed using CT dose reduction for ALARA by means of automated exposure control.. 3-D/MIP reformats postprocessed. Percentage stenosis is determined by d irect quantitative measurements of diseased internal carotid artery diameter compared with normal dis edgardo internal carotid artery reference segments or by criteria similar to NASCET where applicable. CONTRAST: 100 ml of Omnipaque 350 FINDINGS: CT HEAD: BRAIN / INTRACRANIAL CONTENTS: No acute hemorrhage, mass effect, midline shift, or hydrocephalus. No appreciable acute large territorial or lacunar infarct. ORBITS: No significant abnormality of visualized orbits. SINUSES / MASTOIDS: No significant abnormality of visualized sinuses and mastoid air cells. CTA HEAD: Intracranial vertebral arteries: No significant abnormality. Basilar artery: No significant abnormality. Posterior cerebral arteries: No significant abnormality. Intracranial internal carotid arteries: No significant abnormality. Anterior cerebral arteries: No significant abnormality. Middle cerebral arteries: No significant abnormality. Dural venous sinuses:Not optimally opacified. No significant abnormality. CTA NECK: Aortic arch: No significant abnormality. Cervical vertebral arteries: No significant abnormality. Common carotid arteries: No significant abnormality. Cervical internal carotid arteries: No significant abnormality. Additional findings: None. IMPRESSION: 1. No significant stenosis or large vessel occlusion in the cervical or intracranial arteries. Signer Name: Jayson Weinstein MD Signed: 06/10/2021 5:50 PM Workstation Name: [id number]
[2021-06-11] MEDS: IPRATROPIUM/ALBUTEROL SULFATE 3 ML AMPUL.NEB IH SCH ×4 (03:12→20:14)
[2021-06-11] MEDS ORDERED: LISINOPRIL 5 MG TAB PO SCH (07:31)
[2021-06-11] MEDS: amLODIPine 5 MG TAB PO SCH (09:40)
[2021-06-11] MEDS: ASPIRIN 81 MG TAB CHEW PO SCH (09:40)
[2021-06-11] MEDS ORDERED: LISINOPRIL 10 MG TAB PO SCH (10:00)
[2021-06-11] MEDS: LOSARTAN 50 MG TAB PO SCH (10:28)
[2021-06-11] MEDS: NIFEdipine XL 30 MG TAB PO SCH (10:29)
--- NOTE | 2021-06-11 10:49 | Progress Note ---
Assessment and Plan Assessment and plan: 31-year-old male with a past medical history of hypertension and HIV noncompliant and gout was brought to the emergency room because of feeling dizzy. #Hypertensive emergency -Patient endorses noncompliance with antihypertensives -BP this morning 180s/120s -Discontinued amlodipine 5 and lisinopril 10. Starting nifedipine 30 mg daily and losartan 50 mg daily -Discontinued normal saline infusion. Likely leading to increase in overall blood pressure. -Continue to monitor #Vertigo -Likely secondary to hypertensive emergency -CT head Noncon negative, CTA head and neck negative. Pending MRI brain interpretation. TTE revealed mild diastolic dysfunction with EF 40%. -Neurology on board; appreciate recs -Patient will be discharged with scopolamine patch for symptomatic improvement -Counseled patient at bedside on how to perform Wong maneuvers to alleviate symptoms. Patient expressed understanding. -Time: +10 minutes #Prerenal acute renal injury-improving -Likely secondary to hypertensive emergency -Creatinine 1.5 (decreased from 1.8) -Avoiding nephrotoxic medications and renally dosing medications -Continue to monitor #Nausea and vomiting-resolved -Continue IV Zofran 4 mg every 8 hours as needed #HIV infection #Counseling on medication compliance -Patient endorses not being compliant with antiretrovirals. Patient states he has an appointment with infectious disease physician in upcoming weeks. -No emergent need to initiate antiretrovirals while inpatient. -Counseled patient on importance of medication adherence. Patient expressed understanding. -Time: +10 minutes #Gout of left foot -Currently asymptomatic. We will continue home medication. #Prior COVID-19 infection -Patient was diagnosed on 05/30/2021 and endorses quarantining for approximately 10 days. -Given patient's immunocompromise status, patient should quarantine for a total of 21 days. Patient was counseled on needing to continue quarantine upon discharge. Patient expressed understanding. #Discharge planning -Patient will likely be discharged home on 06/12/2021 if blood pressure is appropriately managed. Disposition Plan: Medical management; possible discharge home tomorrow. Total Time Spent with Patient (Minutes): 45 History Interval history: No acute events overnight. Hospitalist Physical - Constitutional Vitals: Temp Pulse Resp BP Pulse Ox 98.9 F 89 18 180/121 100 06/11/21 04:10 06/11/21 10:28 06/11/21 04:10 06/11/21 10:28 06/11/21 08:01 General appearance: Present: no acute distress, well-nourished, obese - EENT Eyes: Present: PERRL, EOM intact ENT: hearing intact, clear oral mucosa, dentition normal - Neck Neck: Present: supple, normal ROM - Respiratory Respiratory effort: normal - Cardiovascular Rhythm: regular Heart Sounds: Present: S1 & S2 - Extremities Extremities: no ischemia, pulses intact, pulses symmetrical, No edema, normal temperature, normal color Peripheral Pulses: within normal limits - Abdominal General gastrointestinal: soft, non-tender, non-distended, normal bowel sounds - Integumentary Integumentary: Present: clear, warm, dry - Psychiatric Psychiatric: appropriate mood/affect, intact judgment & insight, memory intact, cooperative - Neurologic Neurologic: CNII-XII intact, moves all extremities - Allied Health Allied health notes reviewed: nursing HEART Score - HEART Score Troponin: Troponin T < 0.010 ng/mL (0.00-0.029) 06/09/21 22:43 Results - Labs CBC & Chem 7: 06/10/21 06:38 06/10/21 06:38 Labs: Laboratory Last Values WBC 4.6 K/mm3 (4.5-11.0) 06/10/21 06:38 RBC 4.97 M/mm3 (3.65-5.03) 06/10/21 06:38 Hgb 12.7 gm/dl (11.8-15.2) 06/10/21 06:38 Hct 37.7 % (35.5-45.6) 06/10/21 06:38 MCV 76 fl (84-94) L 06/10/21 06:38 MCH 26 pg (28-32) L 06/10/21 06:38 MCHC 34 % (32-34) 06/10/21 06:38 RDW 15.7 % (13.2-15.2) H 06/10/21 06:38 Plt Count 240 K/mm3 (140-440) 06/10/21 06:38 Lymph % (Auto) 36.7 % (13.4-35.0) H 06/10/21 06:38 [place] % (Auto) 14.7 % (0.0-7.3) H 06/10/21 06:38 Eos % (Auto) 1.3 % (0.0-4.3) 06/10/21 06:38 Baso % (Auto) 0.8 % (0.0-1.8) 06/10/21 06:38 Lymph # (Auto) 1.7 K/mm3 (1.2-5.4) 06/10/21 06:38 [place] # (Auto) 0.7 K/mm3 (0.0-0.8) 06/10/21 06:38 Eos # (Auto) 0.1 K/mm3 (0.0-0.4) 06/10/21 06:38 Baso # (Auto) 0.0 K/mm3 (0.0-0.1) 06/10/21 06:38 Seg Neutrophils % 46.5 % (40.0-70.0) 06/10/21 06:38 Seg Neutrophils # 2.1 K/mm3 (1.8-7.7) 06/10/21 06:38 Sodium 138 mmol/L (137-145) 06/10/21 06:38 Potassium 3.7 mmol/L (3.6-5.0) 06/10/21 06:38 Chloride 99.3 mmol/L (98-107) 06/10/21 06:38 Carbon Dioxide 24 mmol/L (22-30) 06/10/21 06:38 Anion Gap 18 mmol/L 06/10/21 06:38 BUN 17 mg/dL (9-20) 06/10/21 06:38 Creatinine 1.5 mg/dL (0.8-1.3) H 06/10/21 06:38 Estimated GFR > 60 ml/min 06/10/21 06:38 BUN/Creatinine Ratio 11 % 06/10/21 06:38 Glucose 100 mg/dL (75-100) 06/10/21 06:38 Calcium 9.2 mg/dL (8.4-10.2) 06/10/21 06:38 Magnesium 1.80 mg/dL (1.7-2.3) 06/09/21 17:43 Total Bilirubin 0.40 mg/dL (0.1-1.2) 06/09/21 17:43 AST 14 units/L (5-40) 06/09/21 17:43 ALT 13 units/L (7-56) 06/09/21 17:43 Alkaline Phosphatase 73 units/L (35-129) 06/09/21 17:43 Troponin T < 0.010 ng/mL (0.00-0.029) 06/09/21 22:43 Total Protein 8.7 g/dL (6.3-8.2) H 06/09/21 17:43 Albumin 4.1 g/dL (3.9-5) 06/09/21 17:43 Albumin/Globulin Ratio 0.9 % 06/09/21 17:43 Coronavirus (PCR) Positive (Negative) A 06/10/21 10:05 [place]/IV: Voiding Method Toilet Active Medications - Current Medications Current Medications: Generic Name Dose Route Start Last Admin Trade Name Freq PRN Reason Stop Dose Admin Acetaminophen 650 mg 06/09/21 22:32 Acetaminophen 325 Mg Tab PO Q4H PRN Pain MILD(1-3)/Fever >100.5/MARCIAL Albuterol 2.5 mg 06/09/21 22:32 Albuterol 2.5 Mg/3 Ml Nebu IH Q4HRT PRN Shortness Of Breath Albuterol/Ipratropium 1 ampul 06/10/21 02:00 06/11/21 08:00 Ipratropium/Albuterol Sulfate 3 Ml Ampul.Neb IH Not Given Q6HRT RYANN Atorvastatin Calcium 40 mg 06/10/21 22:00 06/10/21 22:00 Atorvastatin 40 Mg Tab PO 40 mg QHS RYANN Administration Hydralazine HCl 10 mg 06/09/21 22:35 06/10/21 07:07 Hydralazine 20 Mg/1 Ml Inj IV 10 mg Q6H PRN Administration Blood Pressure Hydromorphone HCl 0.5 mg 06/09/21 22:32 Hydromorphone 1 Mg/1 Ml Inj IV Q3H PRN Pain , Severe (7-10) Losartan Potassium 50 mg 06/11/21 10:00 06/11/21 10:28 Losartan 50 Mg Tab PO 50 mg QDAY RYANN Administration Nifedipine 30 mg 06/11/21 10:00 06/11/21 10:29 Nifedipine Xl 30 Mg Tab PO 30 mg QDAY RYANN Administration Ondansetron HCl 4 mg 06/09/21 22:32 Ondansetron 4 Mg/2 Ml Inj IV Q8H PRN Nausea And Vomiting Oxycodone/Acetaminophen 1 tab 06/09/21 22:32 Oxycodone /Acetaminophen 5-325mg Tab PO Q6H PRN Pain, Moderate (4-6) Sodium Chloride 10 ml 06/10/21 10:00 06/11/21 09:40 Sodium Chloride 0.9% 10 Ml Flush Syringe IV 10 ml BID RYANN Administration Sodium Chloride 10 ml 06/09/21 22:32 Sodium Chloride 0.9% 10 Ml Flush Syringe IV PRN PRN LINE FLUSH
--- NOTE | 2021-06-11 11:48 | Progress Note ---
Assessment and Plan Assessment and Plan VTE prophylaxis?: Chemical Plan of care discussed with patient/family: Yes - Patient Problems # Dizziness/ vertigo for over a month on and off -NIH#0 -elevated BP#191/135 initially -not comply with medications -CT brain is unremarkable -not candidate for TPA nor thrombectomy -Suggest CTA brain and neck due to hx of COVID done are unremarkable - brain MRI is pending -ASA 81 mg daily and lipitor 40 mg -LDL is pending -Stop antivert try scopolamin patch Q3 days -check for orthostatic changes # Acute renal injury -Avoid nephrotoxic drug. - Half-normal saline at the rate of 75 cc/h. - Renally dose medication recheck BMP in the morning -BUN/Cr# 17/1.5 # Gouty arthritis of left foot -We will continue the home medication. we will monitor the patient closely # Hypertensive emergency -Norvasc 5 mg p.o. daily. - Hydralazine 10 mg IV every 6 hours as needed. - Lisinopril 5 mg p.o. daily. -We will monitor the blood pressure closely # Nausea & vomiting -Pepcid 20 mg IV every 12 hours. - Zofran 4 million IV every 6 hours as needed. - Half-normal saline at the rate of 100 cc/h. # Hx of HIV -poor compliance with medications # Hx of COVID-19 in april ? and may -check inflammatory markers -he is with increase N and V he relate to COVID -19? improved # DVT prophylaxis -SCD for DVT prophylaxis. Pepcid 20 mg p.o. twice daily for GI prophylaxis. Patient is a full code PLAN 1- MRI brain 2- PT therapy 3- scopolamin patch Q3 days 4- check for rorthostatic changes BP and HR will follow Subjective Date of service: 06/11/21 Principal diagnosis: vertigo Interval history: According to pt. vertigo is some what better >50% no nausea or vomiting COVID-19 PCR is positive MRI brain is pending -orthostatic changes to check -change antivert to scopolamin patch Objective - Vital Sign Vital Signs - 12hr 06/11/21 06/11/21 06/11/21 04:10 08:01 09:40 Temperature 98.9 F Pulse Rate 88 89 Respiratory 18 Rate Blood Pressure 135/98 180/121 O2 Sat by Pulse 97 100 Oximetry 06/11/21 06/11/21 09:41 10:28 Temperature Pulse Rate 89 89 Respiratory Rate Blood Pressure 180/121 180/121 O2 Sat by Pulse Oximetry - General Apperance Constitutional: comfortable - EENT EENT: PERRL - Respiratory Respiratory: chest non-tender, lungs clear - Cardiovascular Cardiovascular: regular rate, normal S1, normal S2 Extremities: no peripheral edema bilat, no clubbing, cyanosis - Gastrointestinal Gastrointestinal: normoactive bowel sounds - Integumentary Integumentary: normal - Neurologic Cranial nerve examination: PERRL, EOMI, intact Speech examination: intact Detailed motor examination: grossly full strength in - Laboratory Findings CBC and BMP: 06/10/21 06:38 06/10/21 06:38 Abnormal Lab Findings: Abnormal Labs 06/09/21 06/09/21 06/10/21 17:43 17:43 06:38 RBC 5.46 H MCV 78 L 76 L MCH 25 L 26 L RDW 15.5 H 15.7 H Lymph % (Auto) 36.9 H 36.7 H [place] % (Auto) 9.3 H 14.7 H Creatinine 1.8 H Total Protein 8.7 H Coronavirus (PCR) 06/10/21 06/10/21 06:38 10:05 RBC MCV MCH RDW Lymph % (Auto) [place] % (Auto) Creatinine 1.5 H Total Protein Coronavirus (PCR) Positive A
[2021-06-11] MEDS ORDERED: SCOPOLAMINE TRANSDERMAL PATCH 72 HR TD SCH (14:00)
[2021-06-12 06:43] LABS: Hematocrit 39.2 % (35.5-45.6); Hemoglobin 12.7 gm/dl (11.8-15.2); Mean Corpuscular HGB Conc 33 % (32-34); Mean Corpuscular Volume 78 fl (84-94); Platelet Count 260 K/mm3 (140-440); Red Blood Count 5.06 M/mm3 (3.65-5.03); Red Cell Distribution Width 15.7 % (13.2-15.2)
[2021-06-12 07:06] LABS: Calcium 9.5 mg/dL (8.4-10.2)
[2021-06-12] MEDS ORDERED: LACTATED RINGERS 1,000 ML IV ONE (08:00)
[2021-06-12] MEDS: IPRATROPIUM/ALBUTEROL SULFATE 3 ML AMPUL.NEB IH SCH ×3 (08:43→15:55)
[2021-06-12] MEDS: NIFEdipine XL 30 MG TAB PO SCH (10:16)
[2021-06-12] MEDS: LOSARTAN 50 MG TAB PO SCH (10:16)
[2021-06-12 10:55] VITALS: BP 172/107
--- NOTE | 2021-06-12 11:10 | Progress Note ---
Assessment and Plan Assessment and Plan VTE prophylaxis?: Chemical Plan of care discussed with patient/family: Yes - Patient Problems # Dizziness/ vertigo for over a month on and off -NIH#0 -elevated BP#191/135 initially -not comply with medications -CT brain is unremarkable -not candidate for TPA nor thrombectomy -Suggest CTA brain and neck due to hx of COVID done are unremarkable - brain MRI is pending -ASA 81 mg daily and lipitor 40 mg -LDL is pending -Stop antivert try scopolamin patch Q3 days -check for orthostatic changes # Acute renal injury -Avoid nephrotoxic drug. - Half-normal saline at the rate of 75 cc/h. - Renally dose medication recheck BMP in the morning -BUN/Cr# 17/1.5---1.9 today # Gouty arthritis of left foot -We will continue the home medication. we will monitor the patient closely # Hypertensive emergency -Norvasc 5 mg p.o. daily. - Hydralazine 10 mg IV every 6 hours as needed. - Lisinopril 5 mg p.o. daily. -We will monitor the blood pressure closely # Nausea & vomiting -Pepcid 20 mg IV every 12 hours. - Zofran 4 million IV every 6 hours as needed. - Half-normal saline at the rate of 100 cc/h. # Hx of HIV -poor compliance with medications # Hx of COVID-19 in april ? and may -check inflammatory markers -he is with increase N and V he relate to COVID -19? improved # DVT prophylaxis -SCD for DVT prophylaxis. Pepcid 20 mg p.o. twice daily for GI prophylaxis. Patient is a full code PLAN 1- MRI brain wo Gd due to worsening of kidney function 2- PT therapy 3- scopolamin patch Q3 days 4- check for rorthostatic changes BP and HR 5- Comply with medications will follow as needed Subjective Date of service: 06/12/21 Principal diagnosis: vertigo Interval history: According to pt. vertigo is almost gone , tolerated scopolamin patch well no nausea or vomiting COVID-19 PCR is positive MRI brain is pending -orthostatic changes to check to do today !!!! -change antivert to scopolamin patch his walking improved no vertigo is noted no focal weakness Objective - Vital Sign Vital Signs - 12hr 06/12/21 06/12/21 06/12/21 04:19 08:43 10:16 Temperature 98.8 F Pulse Rate 99 H 83 Respiratory 18 Rate Blood Pressure 130/74 165/105 O2 Sat by Pulse 96 96 Oximetry 06/12/21 10:53 Temperature 97.6 F Pulse Rate 83 Respiratory 19 Rate Blood Pressure 172/107 O2 Sat by Pulse 97 Oximetry - General Apperance Constitutional: comfortable - EENT EENT: PERRL, mucous membranes moist - Respiratory Respiratory: chest non-tender, lungs clear - Cardiovascular Cardiovascular: regular rate, normal S1, normal S2 Extremities: no peripheral edema bilat, no clubbing, cyanosis - Gastrointestinal Gastrointestinal: normoactive bowel sounds - Integumentary Integumentary: normal - Neurologic Cranial nerve examination: PERRL, intact Speech examination: intact Detailed motor examination: grossly full strength in - Laboratory Findings CBC and BMP: 06/12/21 06:08 06/12/21 06:08 Abnormal Lab Findings: Abnormal Labs 06/09/21 06/09/21 06/10/21 17:43 17:43 06:38 RBC 5.46 H MCV 78 L 76 L MCH 25 L 26 L RDW 15.5 H 15.7 H Lymph % (Auto) 36.9 H 36.7 H Levy % (Auto) 9.3 H 14.7 H Potassium BUN Creatinine 1.8 H Glucose POC Glucose Total Protein 8.7 H Coronavirus (PCR) 06/10/21 06/10/21 06/11/21 06:38 10:05 12:05 RBC MCV MCH RDW Lymph % (Auto) Levy % (Auto) Potassium BUN Creatinine 1.5 H Glucose POC Glucose 109 H Total Protein Coronavirus (PCR) Positive A 06/12/21 06/12/21 06:08 06:08 RBC 5.06 H MCV 78 L MCH 25 L RDW 15.7 H Lymph % (Auto) Levy % (Auto) Potassium 3.5 L BUN 22 H Creatinine 1.9 H Glucose 101 H POC Glucose Total Protein Coronavirus (PCR)
[2021-06-12 12:14] LABS: Total Cells Counted 100
[2021-06-12 12:15] LABS: Platelet Estimate Consistent w Auto; RBC Morphology Normal
--- NOTE | 2021-06-12 13:41 | Discharge Summary ---
Providers - Providers Date of Admission: 06/09/21 22:32 Date of discharge: 06/12/21 Attending physician: MERT FAITH MD 06/09/21 22:32 Consult to Physician [CONS] Routine Comment: Consulting Provider: LANIE ALFARO Physician Instructions: Reason For Exam: Dizziness Primary care physician: WRAPPER OFF Hospitalization Reason for admission: Hypertensive emergency Condition: Good Pertinent studies: Reviewed. Procedures: None. Hospital course: 31-year-old male with a past medical history of hypertension and HIV noncompliant and gout was brought to the emergency room because of feeling dizzy. The patient was evaluated in the emergency room and was found to have hypertensive emergency. Due to his complaints of dizziness and imbalance, the patient underwent CT head Noncon, CTA head and neck. All imaging was found to be negative. Neurology was consulted and recommended scopolamine patch for symptomatic improvement. The patient's blood pressure was managed with medical adjustments. Extensive counseling was performed given regarding medication compliance (specifically for HIV and hypertension), weight loss, and dietary changes. The patient expressed understanding. Disposition: 01 HOME / SELF CARE / HOMELESS Final Discharge Diagnosis (Prints w/discharge instructions): Hypertensive emergency; vertigo Time spent for discharge: 45 minutes Core Measure Documentation - Palliative Care Palliative Care/ Comfort Measures: Not Applicable - Core Measures Any of the following diagnoses?: none - VTE Discharge Requirements Deep Vein Thrombosis/Pulmonary Embolism Present on Admission: No Has pt received <5 days of overlap therapy or INR<2.0: No (Not indicated) Anticoagulant overlap therapy prescribed at discharge: No Contraindication No Overlap Therapy order at DC: Not Indicated - Acute [facility] Discharge Requirements Aspirin at discharge: No Reason for no aspirin on DC: Medical contraindication (Not indicate) JAGDEEP/ARB for LVSD if EF <40%: Yes Beta justin at discharge: No Reason for no beta justin on DC: Medical contraindication (Not indicate) Statin for LDL = or >100 mg/dl on DC: Not Applicable Reason for no statin on DC: Medical contraindication (Not indicated) - Heart Failure Discharge Requirements JAGDEEP/ARB for LVSD if EF <40%: Yes Beta justin at discharge: No Reason for no beta justin on DC: Medical contraindication (Not indicated) - Stroke Discharge Requirements Statin for LDL = or >70 mg/dl on DC: Not Applicable Reason for no statin on DC: Not Indicated Anticoag for atrial fib/atrial flutter: Not Applicable Reason for no anticoag for AF/F on DC: Not Indicated Antithrombotic for ischemic stroke: No Reason for no antithrombotic on DC: Not Indicated Exam - Constitutional Vitals: Temp Pulse Resp BP Pulse Ox 97.6 F 83 19 172/107 97 06/12/21 10:53 06/12/21 10:53 06/12/21 10:53 06/12/21 10:53 06/12/21 10:53 General appearance: Present: no acute distress, well-nourished, obese - EENT Eyes: Present: PERRL, EOM intact ENT: hearing intact, clear oral mucosa, dentition normal - Neck Neck: Present: supple, normal ROM - Respiratory Respiratory effort: normal - Cardiovascular Rhythm: regular Heart Sounds: Present: S1 & S2 - Extremities Extremities: no ischemia, pulses intact, pulses symmetrical, No edema, normal temperature, normal color Peripheral Pulses: within normal limits - Abdominal General gastrointestinal: Present: soft, non-tender, non-distended, normal bowel sounds Male genitourinary: Present: deferred - Rectal Rectal Exam: deferred - Integumentary Integumentary: Present: clear, warm, dry - Musculoskeletal Musculoskeletal: strength equal bilaterally - Psychiatric Psychiatric: appropriate mood/affect, intact judgment & insight, memory intact, cooperative - Neurologic Neurologic: CNII-XII intact, moves all extremities - Allied Health Allied health notes reviewed: nursing Plan Activity: no restrictions Diet: low salt Health Concerns: The patient should return to the emergency room if any of the following occurs: Confusion, weakness, change in vision, chest pain/pressure, shortness of breath, inability to produce urine, or worsening vertigo. Assessment: Discharging home. Follow up with: LINDA JACOBS MD [Primary Care Provider] - 7 Days ARIANE MARIE MD [Staff Physician] - 14 Days Prescriptions: AtorvaSTATin [Lipitor] 40 mg PO QHS #30 tablet Losartan [Cozaar] 25 mg PO QDAY #30 tablet NIFEdipine XL [Procardia Xl] 30 mg PO QDAY #30 tablet Scopolamine [Transderm-Scop] 1 each TD Q3D #10 patch
== END 2021-06-12 16:15 | disposition home or self-care (01) ==
LOC: ED 16:13 → 3A 22:32
PROVIDERS: ADMIT Hospitalist; ATTEND Student in an Organized Health Care Education/Training Program
DX: U07.1 COVID-19 (principal); N17.9 Acute kidney failure, unspecified; I16.1 Hypertensive emergency; M10.9 Gout, unspecified; R42 Dizziness and giddiness; R11.2 Nausea with vomiting, unspecified; Z21 Asymptomatic human immunodeficiency virus [HIV] infection status; Z79.899 Other long term (current) drug therapy; Z98.890 Other specified postprocedural states
CPT/HCPCS: 36415; 70450; 70496; 70498; 71046; 80048; 80053; 82962; 83735; 84100; 84484; 85007; 85025; 93005; 93306; 94640; 94644; 96361; 96374; 96375; 96376; 99285; A9270; G0378; J0360; J7030; J7120; Q9967; U0003